=== PATIENT | female | born 1955 | race Caucasian/White ===

== ENCOUNTER 2016-08-18 06:05 | Day surgery (SDC) | payer OTHER ==
[2016-08-18] MEDS ORDERED: Lactated Ringers 1,000 ML IV ONE (07:27)
[2016-08-18] MEDS ORDERED: Lactated Ringers 1,000 ML IV SCH (07:30)
[2016-08-18] MEDS ORDERED: DIPRIVAN 200 MG/20 ML IV ONE (08:00)
[2016-08-18] MEDS ORDERED: Mylicon DROPS PO ONE (08:00)
[2016-08-18] MEDS ORDERED: Ketamine HCl 50 MG/ML IJ ONE (08:45)
[2016-08-18 09:07] VITALS: O2SAT 99
[2016-08-18 09:56] VITALS: BP 139/79; PULSE 80
--- NOTE | 2016-08-18 10:45 | OP ---
SURGERY DATE/TIME: 08/18/2016808 PREOPERATIVE DIAGNOSIS: Epigastric pain. POSTOPERATIVE DIAGNOSIS: 1) Hiatal hernia. 2) Esophagitis. 3) Mild gastritis. PROCEDURE: Esophagogastroduodenoscopy with biopsy. SURGEON: Dr. Curiel. ANESTHESIA: Medications were given by the anesthesia department. BRIEF HISTORY: The patient is a 61 year old white female patient who presents now for complaints of epigastric pain. The patient reports that she has been taking famotidine and omeprazole without resolution of her epigastric problems. She reports that she is having significant reflux as well. The patient was felt to need to have endoscopic evaluation and she was appraised of the risks of the procedure including the risk of perforation, phlebitis, untoward reaction to medication, bleeding, missed lesions. The patient verbalized her understanding and desired to have the procedure performed. DESCRIPTION OF PROCEDURE: The patient was given the medications by the anesthesia department. She had continuous pulse oximetry, ECG monitoring, intermittent blood pressure monitoring and tidal CO2 monitoring during the examination. She was placed in the left lateral decubitus position. A bite block was placed. The flexible Olympus gastroscope was used to intubate the oropharynx. The scope was easily introduced into the esophagus which was normal to the lower one-third where we noted hiatal hernia pouch. There was also noted to be significant erythema at the junction of the pouch and the esophagus. The stomach was entered where normal gastric rugal folds were seen and these distended nicely with insufflation of air. The scope was passed along the greater curvature of the stomach to the antrum. The pylorus is encountered and intubated. Duodenum inspected and found to be normal. The scope is withdrawn towards the stomach. Again, a retroflex view was obtained of the lesser curvature, fundus and cardia regions of the stomach and again was noted the hiatal hernia. The scope was then redirected towards the gastric antrum and biopsies were obtained to rule out the presence of Helicobacter pylori-type organisms. We also noted a few scattered gastric polyps and these were biopsied as well as to rule out any neoplastic change. The scope was removed from the patient who tolerated the procedure well and was sent back to the hospital [facility] in good condition.
== END 2016-08-18 09:25 | disposition home or self-care (01) ==
LOC: SDC 06:05
PROVIDERS: ATTEND Family Medicine
PROC: 0DB68ZX Excision of Stomach, Via Natural or Artificial Opening Endoscopic, Diagnostic (ICD-10-PCS; principal; 2016-08-18)
DX: K44.9 Diaphragmatic hernia without obstruction or gangrene (principal); K20.9 Esophagitis, unspecified; K29.70 Gastritis, unspecified, without bleeding; K31.7 Polyp of stomach and duodenum; K21.9 Gastro-esophageal reflux disease without esophagitis
CPT/HCPCS: 00740; 36415; 88305; J2704

== ENCOUNTER 2017-03-19 06:07 | Day surgery (SDC) | payer OTHER ==
[~2017-03-19 06:07] MED LIST: Lactated Ringers 1,000 ML IV SCH
[2017-03-19] MEDS ORDERED: DIPRIVAN 200 MG/20 ML IV ONE (06:08)
[2017-03-19] MEDS ORDERED: Ketamine HCl 50 MG/ML IV ONE (06:08)
[2017-03-19 06:34] VITALS: PULSE 76
[2017-03-19 08:12] VITALS: O2SAT 100
[2017-03-19 08:43] VITALS: BP 128/61
--- NOTE | 2017-03-19 09:27 | OP ---
SURGERY DATE/TIME: 03/19/2017 0700 PREOPERATIVE DIAGNOSIS: Anemia. POSTOPERATIVE DIAGNOSIS: Normal colon. PROCEDURE: Colonoscopy. SURGEON: Dr. Curiel. ANESTHESIA: MAC. Medications given by anesthesia department. HISTORY: The patient is a 61 year-old white female presenting now for work up for anemia. The patient was felt the need to have endoscopic evaluation of the colon. She was appraised of the risks of the procedure including the risk of perforation, phlebitis, untoward reaction to medication, bleeding and missed lesions. The patient verbalized her understanding and desired to have the procedure performed. DESCRIPTION OF PROCEDURE: The patient was placed in left lateral decubitus position. A digital rectal examination was performed and revealed normal anal sphincter tone and no masses. The flexible Olympus pediatric colonoscope was used to intubate the rectum. A view of the colon was developed sequentially to the cecum. Upon insertion and withdrawal, including a retroflex view in the rectum, no mucosal lesions were encountered. There was however noted to be very large amount of liquid black stool. We obtained sample to send off for evaluation of blood. The scope was removed from the patient who tolerated the procedure well and was sent back to OP recovery in good condition. The prep was noted to be fair.
== END 2017-03-19 08:46 | disposition home or self-care (01) ==
LOC: SDC 06:07
PROVIDERS: ATTEND Family Medicine
PROC: 0DJD8ZZ Inspection of Lower Intestinal Tract, Via Natural or Artificial Opening Endoscopic (ICD-10-PCS; principal; 2017-03-19)
DX: D64.9 Anemia, unspecified (principal); K21.9 Gastro-esophageal reflux disease without esophagitis; I10 Essential (primary) hypertension
CPT/HCPCS: 00810; 82272; J2704

== ENCOUNTER 2017-04-02 05:51 | Day surgery (SDC) | payer OTHER ==
[2017-04-02] MEDS ORDERED: Versed 2 MG/2 ML Injection IV ONE (05:52)
[2017-04-02] MEDS ORDERED: DIPRIVAN 200 MG/20 ML IV ONE (05:52)
[2017-04-02] MEDS ORDERED: Lactated Ringers 1,000 ML IV SCH (07:00)
--- NOTE | 2017-04-02 08:24 | OP ---
SURGERY DATE/TIME: 04/02/2017 0755 PREOPERATIVE DIAGNOSIS: Gastroesophageal reflux disease. POSTOPERATIVE DIAGNOSES: 1) Grade III reflux esophagitis. 2) Hiatal hernia. 3) Gastric polyps. PROCEDURE: Esophagogastroduodenoscopy with biopsy. SURGEON: Dr. Curiel. ANESTHESIA: Medications were given by the anesthesia department. BRIEF HISTORY: The patient is a 61 year old white female presenting with complaints of severe epigastric discomfort radiating up from her stomach into her chest. She was felt the need to have endoscopic evaluation. She was appraised of the risks of the procedure including the risk of perforation, phlebitis, untoward reaction to medication, bleeding and missed lesions. The patient verbalized her understanding and desired to have the procedure performed. DESCRIPTION OF PROCEDURE: The patient was given the medications by the anesthesia department. She had continuous pulse oximetry, ECG monitoring, intermittent blood pressure monitoring and tidal CO2 monitoring during the examination. She was placed in the left lateral decubitus position. A bite block was placed. The flexible Olympus gastroscope was used to intubate the oropharynx. A view of the larynx was obtained and was normal. The scope was easily introduced in the esophagus which appeared to be normal to the lower one-third where there appeared to be streaks of erythema and erosions but no active bleeding in the lower portion of the esophagus. The stomach was then entered. Normal gastric rugal folds were seen. These distended nicely with insufflation of air. There was noted to be scattered gastric polyps that appeared to be benign in nature. The scope was passed along the greater curvature of the stomach to the antrum. The pylorus was encountered and intubated. The duodenum inspected and found to be normal. The scope is withdrawn towards the stomach. A retroflex view was obtained of the lesser curvature, fundus and cardia regions of the stomach. There was noted here to be hiatal hernia. Biopsies were obtained from the gastric polyps to rule out any neoplastic change. The scope was then withdrawn from the patient and the patient was sent back to the recovery room in good condition.
[2017-04-02 09:15] VITALS: BP 127/73; PULSE 57; O2SAT 97
== END 2017-04-02 09:18 | disposition home or self-care (01) ==
LOC: SDC 05:51
PROVIDERS: ATTEND Family Medicine
PROC: 0DB68ZX Excision of Stomach, Via Natural or Artificial Opening Endoscopic, Diagnostic (ICD-10-PCS; principal; 2017-04-02)
DX: K21.0 Gastro-esophageal reflux disease with esophagitis (principal); K44.9 Diaphragmatic hernia without obstruction or gangrene; K31.7 Polyp of stomach and duodenum
CPT/HCPCS: 00740; 36415; 88305; J2250; J2704

== ENCOUNTER 2017-08-26 13:41 | Emergency (ER) | payer OTHER ==
[2017-08-26] MEDS ORDERED: Norflex 60 MG/2 ML IM ONE (14:03)
[2017-08-26] MEDS ORDERED: TORAdol 30 mg Injection IM ONE (14:03)
--- NOTE | 2017-08-26 14:08 | ERPHSYRPT ---
- History of Present Illness Time Seen by Provider: 08/26/17 13:55 Source: patient, family (mother) Patient Subjective Stated Complaint: pt reports she has been packing and moving her house-reports low back pain radiating to right side-denies injury-denies fall Triage Nursing Assessment: pt pink warm and [id number] signs of injury-no bruising or abrasions noted-tenderness noted Physician History: CC: back pain Hx: 62 y/o patient of Dr Curiel with hx of sciatica. She has been packing boxes to move since Wednesday. Today awoke with severe back pain radiating to the right leg similar to prior sciatica. No fever, chills, abd pain. She takes coumadin. No specific injury. No N/T/W. Back Pain Location: lumbar spine Severity of Pain-Max: severe Severity of Pain-Current: severe Allergies/Adverse Reactions: hydrocodone bitartrate [From [place]] Allergy (Mild, Verified 08/26/17 13:52) Rash Sulfa (Sulfonamide Antibiotics) [Sulfa(Sulfonamide Antibiotics)] Allergy (Mild, Verified 08/26/17 13:52) patient unsure as to reaction escitalopram oxalate [From Lexapro] Allergy (Unknown, Verified 08/26/17 13:52) Home Medications: Omeprazole 20 MG [Prilosec 20 mg] 40 mg PO DAILY 11/03/11 [History] Phenytoin Sod Extended 100 mg* [Dilantin 100 MG] 50 mg PO DAILY 11/03/11 [ History] Topiramate [Topamax] 200 mg PO BID 11/03/11 [History] Venlafaxine HCl [Effexor] 75 mg PO DAILY 11/03/11 [History] Amlodipine Besylate 5 mg [Norvasc 5 mg] 10 mg PO DAILY 03/12/14 [History] Metoprolol Tartrate 25 mg [Lopressor 25MG Tab] 12.5 mg PO BID 03/12/14 [ History] Warfarin Sodium 1 mg [Coumadin 1 MG] 3 mg PO DAILY 03/12/14 [History] Alprazolam [Xanax 0.5 mg] 0.5 mg PO TIDPRN 08/17/16 [History] Famotidine [Pepcid] 40 mg PO DAILY 08/17/16 [History] Simvastatin 40 mg [Zocor 40 mg] 40 mg PO DAILY 08/17/16 [History] Ferrous Sulfate [Iron] 325 mg PO BID 03/16/17 [History] Hx Tetanus, Diphtheria Vaccination/Date Given: Yes Hx Influenza Vaccination/Date Given: No Hx Pneumococcal Vaccination/Date Given: No Immunizations Up to Date: Yes - Review of Systems Constitutional: No Fever, No Chills Eyes: No Symptoms Ears, Nose, & Throat: No Symptoms Respiratory: No Cough, No Dyspnea Cardiac: No Chest Pain Abdominal/Gastrointestinal: No Abdominal Pain, No Nausea, No Vomiting Genitourinary Symptoms: No Dysuria Musculoskeletal: Back Pain (radiating to the right leg) Skin: No Rash Neurological: No Focal Weakness, No Headache, No Parasthesia All Other Systems: Reviewed and Negative - Past Medical History Pertinent Past Medical History: Yes Neurological History: Epilepsy, Migraines, Seizures ENT History: No Pertinent History Cardiac History: Hypertension, Other Respiratory History: Asthma Endocrine Medical History: No Pertinent History Musculoskeletal History: No Pertinent History GI Medical History: GERD, Gallbladder Disease, Hemorrhoids History: No Pertinent History Psycho-Social History: Depression Female Reproductive Disorders: No Pertinent History Other Medical History: 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 post shoulder surgery,mitral valve prolapse - Past Surgical History Past Surgical History: Yes Neuro Surgical History: No Pertinent History Cardiac: No Pertinent History Respiratory: No Pertinent History Gastrointestinal: Cholecystectomy Genitourinary: No Pertinent History Musculoskeletal: Orthopedic Surgery Female Surgical History: Hysterectomy Other Surgical History: lt knee and lt shoulder - Social History Smoking Status: Never smoker Exposure to second hand smoke: Yes Drug Use: none Patient Lives Alone: No - Female History Hx Last Menstrual Period: hysterectomy Hx Now: No - Nursing Vital Signs Nursing Vital Signs: Initial Vital Signs Temperature 97.6 F 08/26/17 13:54 Pulse Rate 67 08/26/17 13:54 Respiratory Rate 16 08/26/17 13:54 Blood Pressure 146/80 08/26/17 13:54 O2 Sat by Pulse Oximetry 96 08/26/17 13:54 Pain Scale Pain Intensity 4 - Physical Exam General Appearance: alert Eye Exam: PERRL/EOMI Ears, Nose, Throat Exam: normal ENT inspection, moist mucous membranes Neck Exam: normal inspection, non-tender, supple Respiratory Exam: normal breath sounds Cardiovascular Exam: regular rate/rhythm Gastrointestinal Exam: soft, No tenderness, No distention Back Exam: normal inspection, point tenderness (low spine down right leg buttock ), No rash Neurologic Exam: alert, oriented x 3, cooperative, sensation nml, No motor deficits Skin Exam: warm, dry, No rash SpO2 Interpretation: normal SpO2: 96 Oxygen Delivery: Room Air - Course Nursing assessment & vital signs reviewed: Yes - Radiology Ultrasound Exam lumbar Ultrasound: tele radiology report (nonacute lumbar spine with chronic features, fecal stasis.) Ordered Tests: Active Orders 24 hr Category Date Time Status LUMBAR COMPLETE (MIN 4 VIEWS) Stat Exams 08/26/17 14:49 Completed CBC Stat Lab 08/26/17 14:15 Completed PROTIME WITH INR Stat Lab 08/26/17 14:15 Completed Medication Summary Discontinued Medications Generic Name Dose Route Start Last Admin Trade Name Freq PRN Reason Stop Dose Admin Ketorolac Tromethamine 30 mg 08/26/17 14:03 08/26/17 14:28 Toradol 30 Mg Injection IM 08/26/17 14:04 30 mg STAT ONE Administration Ketorolac Tromethamine Confirm 08/26/17 14:27 Toradol 30 Mg Injection Administered 08/26/17 14:28 Dose 30 mg .ROUTE .STK-MED ONE Orphenadrine Citrate 60 mg 08/26/17 14:03 08/26/17 14:28 Norflex 60 Mg/2 Ml IM 08/26/17 14:04 60 mg STAT ONE Administration Orphenadrine Citrate Confirm 08/26/17 14:27 Norflex 60 Mg/2 Ml Administered 08/26/17 14:28 Dose 60 mg .ROUTE .STK-MED ONE Lab/Rad Data: Laboratory Result Diagrams 08/26/17 14:15 Laboratory Results 08/26/17 08/26/17 Range/Units 14:15 14:15 WBC 7.8 (4.0-10.5) K/mm3 RBC 4.00 L (4.1-5.4) M/mm3 Hgb 12.8 (12.0-16.0) gm/dl Hct 38.9 (35-47) % MCV 97.3 (78-100) fl MCH 32.0 (26-32) pg MCHC 32.9 (32-36) g/dl RDW 13.8 (11.5-14.0) % Plt Count 285 (150-450) K/mm3 MPV 9.8 H (6-9.5) fl INR 5.33 H* (0.8-3.0) - Progress Progress Note: 08/26/17 15:24 She has not had INR checked since May. No bleeding evident. She is on coumadin 4mg 3X a week, and 3mg 4X a week. She already took dose today. She will hold coumadin Wednesday and Wednesday, take 3mg Wednesday and Wednesday, with INR and office call Wednesday. Pain some better. Will release with codiene and norflex. Counseled pt/family regarding: lab results, diagnosis, need for follow-up, rad results - Departure Time of Disposition: 15:25 Departure Disposition: Home Clinical Impression: Sciatica, right side, Warfarin-induced coagulopathy Condition: Stable Critical Care Time: No Referrals: SULMA CURIEL [Primary Care Provider] - Instructions: Sciatica (DC), Anti-Clotting Medicines: Warfarin (Coumadin) Additional Instructions: See Dr Curiel Wednesday at 1:15PM. Lab drawn INR Wednesday before appointment. Hold coumadin Wednesday and Wednesday. Take 3mg Coumadin Wednesday and Wednesday. Rest, warm compresses to back, Rx tylenol #3, Rx norflex. No driving. Return for problems or concerns. Prescriptions: Codeine Phosphate/APAP #3 [Tylenol #3 Tablet] 1 tab PO Q4-6HPRN PRN #15 tablet PRN Reason: Pain Orphenadrine Citrate 100 mg [Norflex 100 MG Tablet] 1 tab PO BID #10 tab
[2017-08-26] MEDS ORDERED: Norflex 60 MG/2 ML ONE (14:27)
[2017-08-26] MEDS ORDERED: TORAdol 30 mg Injection ONE (14:27)
[2017-08-26 14:43] LABS: Hematocrit 38.9 % (35-47); Hemoglobin 12.8 gm/dl (12.0-16.0); Mean Cell Volume 97.3 fl (78-100); Mean Corpuscular Hgb Concent. 32.9 g/dl (32-36); Mean Platelet Volume 9.8 fl (6-9.5); Platelet Count 285 K/mm3 (150-450); Red Cell Distribution Width 13.8 % (11.5-14.0); White Blood Count 7.8 K/mm3 (4.0-10.5)
--- NOTE | 2017-08-26 15:03 | XRAY ---
Indication: Back pain following lifting. Comparison: None 5 views of the lumbar spine demonstrates 5 lumbar vertebral segments in normal alignment with L2-L4 marginal endplate spurring, L3-L4 disc space narrowing, and minimal bilateral L5-S1 degenerative facet arthropathy. No acute fracture, subluxation, or pars interarticularis defect. Incidental scattered colonic fecal debris and cholecystotomy clips. Impression: Nonacute lumbar spine with chronic features. Incidental fecal stasis.
[2017-08-26 15:08] LABS: INR 5.33 (0.8-3.0)
[2017-08-26 15:24] VITALS: BP 116/62; PULSE 70
[2017-08-26 15:29] VITALS: O2SAT 96
== END 2017-08-26 15:55 | disposition home or self-care (01) ==
LOC: ED 13:41
DX: M54.31 Sciatica, right side (principal); D68.9 Coagulation defect, unspecified; Z79.01 Long term (current) use of anticoagulants; Z79.899 Other long term (current) drug therapy
CPT/HCPCS: 36415; 72110; 85027; 85610; 96372; 99284; J1885; J2360

== ENCOUNTER 2018-03-10 11:18 | Emergency (ER) | payer OTHER ==
[2018-03-10] MEDS ORDERED: BENADRYL 50 MG/ML IV ONE (11:32)
[2018-03-10] MEDS ORDERED: Zofran 4 MG/2 ML VIAL IV ONE (11:32)
[2018-03-10] MEDS ORDERED: DUONEB 0.5-3 MG/3 ml Neb IH ONE ×2 (11:34→12:09)
[2018-03-10] MEDS ORDERED: SUBLIMAZE 100 MCG/2 ML ONE (11:41)
[2018-03-10] MEDS ORDERED: Zofran 4 MG/2 ML VIAL ONE (11:41)
[2018-03-10] MEDS ORDERED: Sodium Chloride 0.9% 1000 ML 1,000 ML ONE (11:41)
[2018-03-10] MEDS ORDERED: BENADRYL 50 MG/ML ONE (11:41)
--- NOTE | 2018-03-10 11:41 | ERPHSYRPT ---
- History of Present Illness Time Seen by Provider: 03/10/18 11:30 Historian: patient Exam Limitations: no limitations Patient Subjective Stated Complaint: pt here for pain to left side of chest and jaw, pain started last night and is better, pain worse with a deep breath, productive cough, Triage Nursing Assessment: pt walked in , resp easy, skin w/d/p. anxious, chest clear. no edema Physician History: Pt started c/o mid-sternal chest pain radiating to her left jaw and left arm at midnight last night, lasting 3 hours. It has resolved, but she is c/o left sided headaches, nausea, denies vomiting, visual changes, slurred speech, focal weakness, SOB abdominal pain, other complaints, except productive cough for few days without fever or chills. She has had similar headaches ( migraines) multiple times. She states, she takes Coumadin, because " I had clot in my heart " but denies [place], cardiac cath. or stents. Timing/Duration: hour(s) (12), constant Activities at Onset: none Quality: sharpness, stabbing Location: substernal Chest Pain Radiation: jaw, arm (left) Severity of Pain-Max: severe Severity of Pain-Current: none Modifying Factors: Improves With: nothing Associated Symptoms: nausea, cough, headache Prior Chest Pain/Cardiac Workup: no prior chest pain Nitro Today/Relief: no nitro taken today Aspirin Treatment Today: no aspirin today Allergies/Adverse Reactions: hydrocodone bitartrate [From [place]] Allergy (Mild, Verified 03/10/18 11:26) Rash Sulfa (Sulfonamide Antibiotics) [Sulfa(Sulfonamide Antibiotics)] Allergy (Mild, Verified 03/10/18 11:26) patient unsure as to reaction escitalopram oxalate [From Lexapro] Allergy (Unknown, Verified 03/10/18 11:26) Home Medications: Omeprazole 20 MG [Prilosec 20 mg] 40 mg PO DAILY 11/03/11 [History] Phenytoin Sod Extended 100 mg* [Dilantin 100 MG] 50 mg PO DAILY 11/03/11 [ History] Topiramate [Topamax] 200 mg PO BID 11/03/11 [History] Venlafaxine HCl [Effexor] 75 mg PO DAILY 11/03/11 [History] Amlodipine Besylate 5 mg [Norvasc 5 mg] 10 mg PO DAILY 03/12/14 [History] Metoprolol Tartrate 25 mg [Lopressor 25MG Tab] 12.5 mg PO BID 03/12/14 [ History] Warfarin Sodium 1 mg [Coumadin 1 MG] 3 mg PO DAILY 03/12/14 [History] ALPRAZolam [Xanax 0.5 mg] 0.5 mg PO TIDPRN 08/17/16 [History] Famotidine [Pepcid] 40 mg PO DAILY 08/17/16 [History] Simvastatin 40 mg [Zocor 40 mg] 40 mg PO DAILY 08/17/16 [History] Ferrous Sulfate [Iron] 325 mg PO BID 03/16/17 [History] Hx Tetanus, Diphtheria Vaccination/Date Given: No Hx Influenza Vaccination/Date Given: No Hx Pneumococcal Vaccination/Date Given: No Immunizations Up to Date: Yes - Review of Systems Constitutional: No Symptoms Respiratory: Cough Cardiac: Chest Pain Abdominal/Gastrointestinal: Nausea Neurological: Headache All Other Systems: Reviewed and Negative - Past Medical History Pertinent Past Medical History: Yes Neurological History: Epilepsy, Migraines, Seizures ENT History: No Pertinent History Cardiac History: Hypertension, Other Respiratory History: Asthma Endocrine Medical History: No Pertinent History Musculoskeletal History: No Pertinent History GI Medical History: GERD, Gallbladder Disease, Hemorrhoids History: No Pertinent History Psycho-Social History: Depression Female Reproductive Disorders: No Pertinent History Other Medical History: 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 post shoulder surgery,mitral valve prolapse - Past Surgical History Past Surgical History: Yes Neuro Surgical History: No Pertinent History Cardiac: No Pertinent History Respiratory: No Pertinent History Gastrointestinal: Cholecystectomy Genitourinary: No Pertinent History Musculoskeletal: Orthopedic Surgery Female Surgical History: Hysterectomy Other Surgical History: lt knee and lt shoulder - Social History Smoking Status: Never smoker Exposure to second hand smoke: No Drug Use: none Patient Lives Alone: No - Female History Hx Last Menstrual Period: post - Nursing Vital Signs Nursing Vital Signs: Initial Vital Signs Temperature 97.8 F 03/10/18 11:20 Pulse Rate 79 03/10/18 11:20 Respiratory Rate 16 03/10/18 11:20 Blood Pressure 157/98 03/10/18 11:20 O2 Sat by Pulse Oximetry 97 03/10/18 11:20 Pain Scale Pain Intensity 2 - Physical Exam General Appearance: no apparent distress, alert Eye Exam: PERRL/EOMI, eyes nml inspection Ears, Nose, Throat Exam: normal ENT inspection, pharynx normal, moist mucous membranes Neck Exam: normal inspection, non-tender, supple, No carotid bruit, No JVD Respiratory Exam: normal breath sounds, lungs clear, airway intact, No chest tenderness Cardiovascular Exam: regular rate/rhythm, normal heart sounds, normal peripheral pulses, No murmur Gastrointestinal/Abdomen Exam: soft, normal bowel sounds, No tenderness, No distention, No mass, No guarding Back Exam: normal inspection, No CVA tenderness Extremity Exam: normal inspection, No calf tenderness, No shaila's sign, No pedal edema Neurologic Exam: alert, oriented x 3, lock up worker II-XII nml as tested, normal mood/ affect, No motor deficits Skin Exam: normal color, warm, dry, No rash Lymphatic Exam: No adenopathy SpO2 Interpretation: normal SpO2: 97 Oxygen Delivery: Room Air - Course Nursing assessment & vital signs reviewed: Yes EKG Interpreted by Me: RATE (75/min), NORMAL AXIS, NORMAL INTERVALS, NORMAL ST-T , Other (unchanged from 12/08/2012, repeat Ek:14: NSR, unchanged.) - Radiology Exams Chest X-ray Interpretation: Reviewed by me, Other (Lingular infiltrate vs atelectasis) - CT Exams Head CT Interpretation: Negative, Tele-radiologist Report Ordered Tests: Active Orders 24 hr Category Date Time Status Clinical Systems Analyst STAT Care 03/10/18 11:30 Active EKG-ER Only STAT Care 03/10/18 11:29 Active EKG-ER Only STAT Care 03/10/18 13:49 Active IV Insertion STAT Care 03/10/18 11:29 Active Oxygen-ED Only NASAL CANNULA 2 lpm Care 03/10/18 11:29 Active CHEST 2 VIEWS (PA AND LAT) Stat Exams 03/10/18 11:30 Completed HEAD WITHOUT CONTRAST [CT] Stat Exams 03/10/18 11:31 Completed BLOOD CULTURE Stat Lab 03/10/18 11:30 Received CBC W DIFF Stat Lab 03/10/18 11:40 Completed CK-Creatinine Phosphokinase Stat Lab 03/10/18 11:40 Completed CMP Stat Lab 03/10/18 11:40 Completed LIPASE Stat Lab 03/10/18 11:40 Completed Lactic Acid Stat Lab 03/10/18 14:30 Completed MAGNESIUM Stat Lab 03/10/18 11:40 Completed NT PRO BNP Stat Lab 03/10/18 11:40 Completed PROTIME WITH INR Stat Lab 03/10/18 11:40 Completed SED RATE [Erythrocyte Sedimentation Rate] Stat Lab 03/10/18 11:40 Completed TROPONIN Q3H Lab 03/10/18 11:40 Completed TROPONIN Q3H Lab 03/10/18 14:28 Completed TROPONIN Q3H Lab 03/10/18 17:30 Ordered TROPONIN Q3H Lab 03/10/18 20:30 Ordered TROPONIN Q3H Lab 03/10/18 23:30 Ordered Respiratory Nebulizer STAT RT 03/10/18 11:34 Completed Respiratory Therapy Assessment ONCE RT 03/10/18 12:10 Completed Medication Summary Generic Name Dose Route Start Last Admin Trade Name Freq PRN Reason Stop Dose Admin Sodium Chloride 1,000 mls @ 100 mls/hr 03/10/18 11:45 03/10/18 11:55 Sodium Chloride 0.9% 1000 Ml IV 04/09/18 11:44 100 mls/hr .Q10H ARLET Administration Azithromycin 500 mg in 250 mls @ 250 mls/hr 03/11/18 13:55 03/10/18 14:08 Zithromax 500 Mg/ 250 Ml Nacl Premix IV 03/11/18 14:54 125 ml/hr NOW ONE 125 mls/hr Administration Ceftriaxone Sodium/Dextrose 1 g in 50 mls @ 100 mls/hr 03/11/18 13:55 15:17 Rocephin 1 Gm-D5w 50 Ml Bag IV 03/11/18 14:24 100 ml/hr NOW ONE 100 mls/hr Administration Discontinued Medications Generic Name Dose Route Start Last Admin Trade Name Freq PRN Reason Stop Dose Admin Albuterol/Ipratropium 3 ml 03/10/18 11:34 03/10/18 12:10 Duoneb 0.5-3 Mg/3 Ml Neb IH 03/10/18 11:35 3 ml STAT ONE Administration Albuterol/Ipratropium Confirm 03/10/18 12:09 Duoneb 0.5-3 Mg/3 Ml Neb Administered 03/10/18 12:10 Dose 3 ml IH .STK-MED ONE Diphenhydramine HCl 25 mg 03/10/18 11:32 03/10/18 11:55 Benadryl 50 Mg/Ml IV 03/10/18 11:33 25 mg STAT ONE Administration Diphenhydramine HCl Confirm 03/10/18 11:41 Benadryl 50 Mg/Ml Administered 03/10/18 11:42 Dose 50 mg .ROUTE .STK-MED ONE Fentanyl Citrate 50 mcg 03/10/18 11:45 03/10/18 11:47 Fentanyl 500 Mcg/10 Ml Vial IV 03/10/18 11:46 Not Given NOW ONE Fentanyl Citrate Confirm 03/10/18 11:41 Sublimaze 100 Mcg/2 Ml Administered 03/10/18 11:42 Dose 100 mcg .ROUTE .STK-MED ONE Fentanyl Citrate 50 mcg 03/10/18 11:44 03/10/18 11:54 Sublimaze 100 Mcg/2 Ml IV 03/10/18 11:45 50 mcg STAT ONE Administration Levofloxacin/Dextrose 750 mg in 150 mls @ 100 mls/hr 03/10/18 13:54 03/10/18 14:04 Levofloxacin 750mg/150ml D5w IV 03/10/18 15:23 Not Given STAT STA Azithromycin Confirm 03/10/18 14:02 Zithromax 500 Mg/ 250 Ml Nacl Premix Administered 03/10/18 14:03 Dose 500 mg in 250 mls @ ud IV .STK-MED ONE Ceftriaxone Sodium/Dextrose Confirm 03/10/18 14:02 Rocephin 1 Gm-D5w 50 Ml Bag Administered 03/10/18 14:03 Dose 1 g in 50 mls @ ud IV .STK-MED ONE Ondansetron HCl 4 mg 03/10/18 11:32 03/10/18 11:55 Zofran 4 Mg/2 Ml Vial IV 03/10/18 11:33 4 mg STAT ONE Administration Ondansetron HCl Confirm 03/10/18 11:41 Zofran 4 Mg/2 Ml Vial Administered 03/10/18 11:42 Dose 4 mg .ROUTE .STK-MED ONE Lab/Rad Data: Laboratory Result Diagrams 03/10/18 11:40 03/10/18 11:40 Laboratory Results 0903/10/18 03/10/18 Range/Units 14:30 14:28 11:40 WBC (4.0-10.5) K/mm3 RBC (4.1-5.4) M/mm3 Hgb (12.0-16.0) gm/dl Hct (35-47) % MCV (78-100) fl MCH (26-32) pg MCHC (32-36) g/dl RDW (11.5-14.0) % Plt Count (150-450) K/mm3 MPV (6-9.5) fl Gran % (36.0-66.0) % Eos # (Auto) (0-0.5) Absolute Lymphs (auto) (1.0-4.6) Absolute Monos (auto) (0.0-1.3) Lymphocytes % (24.0-44.0) % Monocytes % (0.0-12.0) % Eosinophils % (0.00-5.0) % Basophils % (0.0-0.4) % Absolute Granulocytes (1.4-6.9) Basophils # (0-0.4) ESR 14 (0-20) mm/hr PT (9.95-12.35) SECONDS INR (0.8-3.0) Sodium (137-145) mmol/L Potassium (3.5-5.1) mmol/L Chloride (98-107) mmol/L Carbon Dioxide (22-30) mmol/L Anion Gap (5-15) MEQ/L BUN (7-17) mg/dL Creatinine (0.52-1.04) mg/dL Estimated GFR ML/MIN Glucose (74-106) mg/dL Lactic Acid 1.6 (0.4-2.0) Calcium (8.4-10.2) mg/dL Magnesium (1.6-2.3) mg/dL Total Bilirubin (0.2-1.3) mg/dL AST (14-36) U/L ALT (0-35) U/L Alkaline Phosphatase (38-126) U/L Creatine Kinase (30-135) U/L Troponin I < 0.012 (0.000-0.034) ng/mL NT-Pro-B Natriuret Pep (0-900) pg/mL Serum Total Protein (6.3-8.2) g/dL Albumin (3.5-5.0) g/dL Lipase (23-300) U/L 03/10/18 03/10/18 03/10/18 Range/Units 11:40 11:40 11:40 WBC (4.0-10.5) K/mm3 RBC (4.1-5.4) M/mm3 Hgb (12.0-16.0) gm/dl Hct (35-47) % MCV (78-100) fl MCH (26-32) pg MCHC (32-36) g/dl RDW (11.5-14.0) % Plt Count (150-450) K/mm3 MPV (6-9.5) fl Gran % (36.0-66.0) % Eos # (Auto) (0-0.5) Absolute Lymphs (auto) (1.0-4.6) Absolute Monos (auto) (0.0-1.3) Lymphocytes % (24.0-44.0) % Monocytes % (0.0-12.0) % Eosinophils % (0.00-5.0) % Basophils % (0.0-0.4) % Absolute Granulocytes (1.4-6.9) Basophils # (0-0.4) ESR (0-20) mm/hr PT 49.8 H (9.95-12.35) SECONDS INR 4.22 H (0.8-3.0) Sodium 141 (137-145) mmol/L Potassium 3.7 (3.5-5.1) mmol/L Chloride 108 H (98-107) mmol/L Carbon Dioxide 21 L (22-30) mmol/L Anion Gap 15.8 H (5-15) MEQ/L BUN 12 (7-17) mg/dL Creatinine 0.78 (0.52-1.04) mg/dL Estimated GFR > 60.0 ML/MIN Glucose 137 H (74-106) mg/dL Lactic Acid (0.4-2.0) Calcium 9.2 (8.4-10.2) mg/dL Magnesium 2.0 (1.6-2.3) mg/dL Total Bilirubin 0.30 (0.2-1.3) mg/dL AST 43 H (14-36) U/L ALT 41 H (0-35) U/L Alkaline Phosphatase 139 H (38-126) U/L Creatine Kinase 50 (30-135) U/L Troponin I < 0.012 (0.000-0.034) ng/mL NT-Pro-B Natriuret Pep 86.5 (0-900) pg/mL Serum Total Protein 7.8 (6.3-8.2) g/dL Albumin 4.3 (3.5-5.0) g/dL Lipase 159 (23-300) U/L 03/10/18 Range/Units 11:40 WBC 13.7 H (4.0-10.5) K/mm3 RBC 4.49 (4.1-5.4) M/mm3 Hgb 14.4 (12.0-16.0) gm/dl Hct 43.2 (35-47) % MCV 96.2 (78-100) fl MCH 32.1 H (26-32) pg MCHC 33.3 (32-36) g/dl RDW 13.6 (11.5-14.0) % Plt Count 300 (150-450) K/mm3 MPV 9.9 H (6-9.5) fl Gran % 76.9 H (36.0-66.0) % Eos # (Auto) 0.15 (0-0.5) Absolute Lymphs (auto) 2.03 (1.0-4.6) Absolute Monos (auto) 0.97 (0.0-1.3) Lymphocytes % 14.8 L (24.0-44.0) % Monocytes % 7.1 (0.0-12.0) % Eosinophils % 1.1 (0.00-5.0) % Basophils % 0.1 (0.0-0.4) % Absolute Granulocytes 10.57 H (1.4-6.9) Basophils # 0.02 (0-0.4) ESR (0-20) mm/hr PT (9.95-12.35) SECONDS INR (0.8-3.0) Sodium (137-145) mmol/L Potassium (3.5-5.1) mmol/L Chloride (98-107) mmol/L Carbon Dioxide (22-30) mmol/L Anion Gap (5-15) MEQ/L BUN (7-17) mg/dL Creatinine (0.52-1.04) mg/dL Estimated GFR ML/MIN Glucose (74-106) mg/dL Lactic Acid (0.4-2.0) Calcium (8.4-10.2) mg/dL Magnesium (1.6-2.3) mg/dL Total Bilirubin (0.2-1.3) mg/dL AST (14-36) U/L ALT (0-35) U/L Alkaline Phosphatase (38-126) U/L Creatine Kinase (30-135) U/L Troponin I (0.000-0.034) ng/mL NT-Pro-B Natriuret Pep (0-900) pg/mL Serum Total Protein (6.3-8.2) g/dL Albumin (3.5-5.0) g/dL Lipase (23-300) U/L - Progress Progress: improved Air Movement: good Progress Note: 03/10/18 15:55 Pt remained afebrile, improved after iv fluids, nebulizer treatments and iv fluids, no severe shortness of breath or distress, she was also given iv Rocephin and Zithromax after blood cultures. She was informed about our results , second troponin and Ekg normal, her headaches resolved, denies chest pain,she is being discharged in stable condition to follow up with her doctor in 2-3 days , return if severe pain, shortness of breath, vomiting or fever > 102 F. She was also advised not to take her Coumadin tonight and contact her PCP tomorrow for follow up blood work and to adjust the next dose! 03/10/18 16:04 - Departure Time of Disposition: 15:59 Departure Disposition: Home Clinical Impression: Pneumonia Qualifiers: Pneumonia type: due to unspecified organism Laterality: left Lung location: upper lobe of lung Qualified Code(s): J18.1 - Lobar pneumonia, unspecified organism Condition: Stable Critical Care Time: No Referrals: SULMA HEALY [Primary Care Provider] - Instructions: Atypical Chest Pain, Tension Headache, Pneumonia, Adult (DC), Angina (DC), Chest Pain (DC) Additional Instructions: Rest x 2-3 days, drink plenty of fluids, and follow up with your physician in 2- 3 days! Return if severe pain, shortness of breath, vomiting, fever> 102 F! Do not take Coumadin tonight and call your PCP for follow up blood work tomorrow to adjust next dose! Prescriptions: Amoxicillin/Potassium Clav [Augmentin 875-125 Tablet] 875 mg PO BID #20 tablet
[2018-03-10] MEDS ORDERED: SUBLIMAZE 100 MCG/2 ML IV ONE (11:44)
[2018-03-10] MEDS ORDERED: Sodium Chloride 0.9% 1000 ML 1,000 ML IV SCH (11:45)
[2018-03-10] MEDS ORDERED: FENTANYL 500 MCG/10 ML VIAL IV ONE (11:45)
[2018-03-10 11:54] LABS: BASOPHIL % 0.1 % (0.0-0.4); Basophil (Absolute #) 0.02 (0-0.4); Eosinophil % 1.1 % (0.00-5.0); Eosinophil (Absolute #) 0.15 (0-0.5); Granulocyte Absolute (ANC) 10.57 (1.4-6.9); Granulocytes % 76.9 % (36.0-66.0); Hematocrit 43.2 % (35-47); Hemoglobin 14.4 gm/dl (12.0-16.0); Lymphocyte (Absolute #) 2.03 (1.0-4.6); Lymphocytes % 14.8 % (24.0-44.0); Mean Cell Volume 96.2 fl (78-100); Mean Corpuscular Hemoglobin 32.1 pg (26-32); Mean Corpuscular Hgb Concent. 33.3 g/dl (32-36); Mean Platelet Volume 9.9 fl (6-9.5); Monocyte (Absolute #) 0.97 (0.0-1.3); Monocytes % 7.1 % (0.0-12.0); Platelet Count 300 K/mm3 (150-450); Red Blood Count 4.49 M/mm3 (4.1-5.4); Red Cell Distribution Width 13.6 % (11.5-14.0); White Blood Count 13.7 K/mm3 (4.0-10.5)
--- NOTE | 2018-03-10 12:07 | XRAY ---
Indication: Headache. History of migraines and epilepsy. Multiple contiguous axial images obtained through the head without contrast. Comparison: December 08, 2012. Again normal appearing brain parenchyma, ventricles, and bony calvarium. Visualized paranasal sinuses and mastoid air cells are clear. Impression: Stable normal CT head without contrast exam. CTDI 71.08
--- NOTE | 2018-03-10 12:07 | XRAY ---
Indication: Cough, short of breath, and chills. Comparison: October 29, 2016 PA/lateral chest demonstrates new subtle lingular infiltrate versus atelectasis. Remaining heart and lungs normal. Bony thorax intact.
[2018-03-10 12:24] LABS: INR 4.22 (0.8-3.0)
[2018-03-10 12:37] LABS: ALBUMIN 4.3 g/dL (3.5-5.0); ALKALINE PHOSPHATASE 139 U/L (38-126); ANION GAP 15.8 MEQ/L (5-15); BLOOD UREA NITROGEN 12 mg/dL (7-17); CHLORIDE 108 mmol/L (98-107); CK-Creatinine Phosphokinase 50 U/L (30-135); Calcium 9.2 mg/dL (8.4-10.2); Carbon Dioxide 21 mmol/L (22-30); Creatinine 1 0.78 mg/dL (0.52-1.04); Glucose 137 mg/dL (74-106); LIPASE 159 U/L (23-300); NT PRO BNP 86.5 pg/mL (0-900); Potassium 3.7 mmol/L (3.5-5.1); SGOT/AST 43 U/L (14-36); SGPT/ALT 41 U/L (0-35); SODIUM 141 mmol/L (137-145); Total Protein 7.8 g/dL (6.3-8.2)
[2018-03-10] MEDS ORDERED: LEVOFLOXACIN 750MG/150ML D5W 750 MG/150 ML BAG IV STA (13:54)
[2018-03-10] MEDS ORDERED: Zithromax 500 MG/ 250 ML NaCl Premix 500 MG/250 ML IVPB IV ONE (14:02)
[2018-03-10] MEDS ORDERED: ROCEPHIN 1 Gm-D5w 50 ml Bag** 1 G/50 ML IVPB IV ONE (14:02)
[2018-03-10 15:33] VITALS: O2SAT 97
[2018-03-10 16:04] VITALS: BP 115/64; PULSE 70
[2018-03-11] MEDS ORDERED: Zithromax 500 MG/ 250 ML NaCl Premix 500 MG/250 ML IVPB IV ONE (13:55)
[2018-03-11] MEDS ORDERED: ROCEPHIN 1 Gm-D5w 50 ml Bag** 1 G/50 ML IVPB IV ONE (13:55)
== END 2018-03-10 16:18 | disposition home or self-care (01) ==
LOC: ED 11:18
DX: J18.9 Pneumonia, unspecified organism (principal); R51 Headache; R11.0 Nausea; Z79.01 Long term (current) use of anticoagulants; Z79.899 Other long term (current) drug therapy
CPT/HCPCS: 36000; 36415; 70450; 71046; 80053; 82550; 83605; 83690; 83735; 83880; 84484; 85025; 85610; 85652; 87040; 93005; 93041; 94640; 96360; 96365; 96367; 96374; 96375; 99285; J0456; J0696; J1200; J2405; J3010; A9270-GY

== ENCOUNTER 2022-11-26 14:27 | Emergency (ER) | payer OTHER ==
--- NOTE | 2022-11-26 14:30 | ERPHSYRPT ---
- History of Present Illness Time Seen by Provider: 11/26/22 14:30 Historian: patient, EMS Exam Limitations: no limitations Physician History: This is a 67-year-old white female patient of Dr. 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 The pain has been present for approximately 1 month but the symptoms have worsened in the last 3 days. Patient states that her pain is in the epigastric area and there is some sharp and burning component with no vomiting episodes but intermittent dry heaving. She has had no fevers. She denies chest pain at this time. She denies shortness of breath. She has had no diarrhea. Patient has had a cholecystectomy and a hysterectomy in the past. Patient has multiple medical issues including hyperlipidemia, seizure disorder, gastroesophageal reflux disease, hypertension, chronic anemia, anxiety, depression, migraine headaches and asthma. Timing/Duration: worse (Worse the last 3 days), other (Symptoms for a month) Quality: aching, sharpness Abdominal Pain Onset Location: epigastric Pain Radiation: no radiation Severity of Pain-Max: moderate Severity of Pain-Current: moderate Modifying Factors: Improves With: other Associated Symptoms: other (Dry heaving dry heaving) Previous symptoms: no recent treatment Allergies/Adverse Reactions: hydrocodone bitartrate [From Lyman] Allergy (Mild, Verified 11/26/22 14:44) Rash Sulfa (Sulfonamide Antibiotics) [Sulfa(Sulfonamide Antibiotics)] Allergy (Mild, Verified 11/26/22 14:44) patient unsure as to reaction escitalopram oxalate [From Lexapro] Allergy (Unknown, Verified 11/26/22 14:44) Home Medications: Topiramate [Topamax] 100 mg PO BID 11/03/11 [History] Venlafaxine HCl [Effexor] 75 mg PO DAILY 11/03/11 [History] Amlodipine Besylate 5 mg [Norvasc 5 mg] 10 mg PO DAILY 03/12/14 [History] Metoprolol Tartrate 25 mg [Lopressor 25MG Tab] 25 mg PO BID 03/12/14 [History] Simvastatin 40 mg [Zocor 40 mg] 40 mg PO DAILY 08/17/16 [History] Diazepam 5 mg [Valium 5 MG] 2 mg PO DAILY 11/26/22 [History] Eslicarbazepine Acetate [Aptiom] 800 mg PO DAILY 11/26/22 [History] Fexofenadine HCl 180 mg PO DAILY 11/26/22 [History] Levocetirizine Dihydrochloride 5 mg PO DAILY 11/26/22 [History] Pantoprazole 40 mg [Protonix 40 mg IV] 40 mg PO DAILY 11/26/22 [History] Pnv,Calcium 72/Iron/Folic Acid [M-Sung Plus Tablet] 1 ea DAILY 11/26/22 [History] Hx Tetanus, Diphtheria Vaccination/Date Given: No Hx Influenza Vaccination/Date Given: No Hx Pneumococcal Vaccination/Date Given: No Travel Risk - International Travel Have you traveled outside of the country in past 3 weeks: No - Coronavirus Screening Are you exhibiting any of the following symptoms?: No Close contact with a COVID-19 positive Pt in past 14-21 Days: No - Review of Systems Constitutional: No Symptoms Eyes: No Symptoms Ears, Nose, & Throat: No Symptoms Respiratory: No Symptoms Cardiac: No Symptoms Abdominal/Gastrointestinal: Abdominal Pain (Epigastric pain) Genitourinary Symptoms: No Symptoms Musculoskeletal: No Symptoms Skin: No Symptoms Neurological: No Symptoms, Sensory Changes Psychological: No Symptoms Endocrine: No Symptoms Hematologic/Lymphatic: No Symptoms Immunological/Allergic: No Symptoms All Other Systems: Reviewed and Negative - Past Medical History Pertinent Past Medical History: Yes Neurological History: Epilepsy, Migraines, Seizures ENT History: No Pertinent History Cardiac History: Hypertension, Other Respiratory History: Asthma Endocrine Medical History: No Pertinent History Musculoskeletal History: No Pertinent History GI Medical History: GERD, Gallbladder Disease, Hemorrhoids History: No Pertinent History Psycho-Social History: Depression Female Reproductive Disorders: No Pertinent History Other Medical History: 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 post shoulder surgery,mitral valve prolapse - Past Surgical History Past Surgical History: Yes Neuro Surgical History: No Pertinent History Cardiac: No Pertinent History Respiratory: No Pertinent History Gastrointestinal: Cholecystectomy Genitourinary: No Pertinent History Musculoskeletal: Orthopedic Surgery Female Surgical History: Hysterectomy Other Surgical History: lt knee and lt shoulder - Social History Smoking Status: Never smoker Exposure to second hand smoke: No Drug Use: none Patient Lives Alone: No - Nursing Vital Signs Nursing Vital Signs: Initial Vital Signs Temperature 97.2 F 11/26/22 14:48 Pulse Rate 73 11/26/22 14:48 Respiratory Rate 20 11/26/22 14:48 Blood Pressure 153/95 11/26/22 14:48 O2 Sat by Pulse Oximetry 95 11/26/22 14:48 Pain Scale Pain Intensity 10 - Physical Exam General Appearance: no apparent distress, alert, anxiety Eye Exam: PERRL/EOMI, eyes nml inspection Ears, Nose, Throat Exam: normal ENT inspection, moist mucous membranes Neck Exam: normal inspection, non-tender, supple, full range of motion Respiratory Exam: normal breath sounds, lungs clear, airway intact, No chest tenderness, No respiratory distress Cardiovascular Exam: regular rate/rhythm, normal heart sounds, normal peripheral pulses Gastrointestinal/Abdomen Exam: soft, normal bowel sounds, tenderness (Epigastrium), guarding (Epigastrium to palpation), No rebound Pelvic Exam: not done Rectal Exam: not done Back Exam: normal inspection, normal range of motion, No CVA tenderness, No vertebral tenderness Extremity Exam: normal inspection, normal range of motion, pelvis stable Neurologic Exam: alert, oriented x 3, cooperative, director transition II-XII nml as tested, normal mood/affect, nml cerebellar function, nml station & gait, sensation nml Skin Exam: normal color, warm, dry Lymphatic Exam: No adenopathy SpO2 Interpretation: normal O2 Delivery: Room Air - Course Nursing assessment & vital signs reviewed: Yes EKG Interpreted by Me: RATE (74), Sinus Rhythm, NORMAL AXIS, NORMAL INTERVALS, NORMAL QRS, NORMAL ST-T, Other (No acute ischemic changes on today's twelve-lead EKG) Ordered Tests: Active Orders 24 hr Category Date Time Status IV Insertion STAT Care 11/26/22 14:47 Active ABDOMEN AND PELVIS W/0 CONTRAS [CT] Stat Exams 11/26/22 14:48 Completed AMYLASE Stat Lab 11/26/22 14:50 Completed CBC W DIFF Stat Lab 11/26/22 14:50 Completed CMP Stat Lab 11/26/22 14:50 Completed LIPASE Stat Lab 11/26/22 14:50 Completed Lactic Acid Stat Lab 11/26/22 14:47 Completed TROPONIN Q4H Lab 11/26/22 14:50 Completed TROPONIN Q4H Lab 11/26/22 19:00 Ordered TROPONIN Q4H Lab 11/26/22 23:00 Ordered UA W/RFX UR CULTURE Stat Lab 11/26/22 14:49 Completed Medication Summary Generic Name Dose Route Start Last Admin Trade Name Werner PRN Reason Stop Dose Admin Sodium Chloride 1,000 mls @ 999 mls/hr 11/26/22 14:47 11/26/22 15:07 Sodium Chloride 0.9% 1000 Ml IV 11/26/22 15:47 999 mls/hr .Q1H1M STA Administration Discontinued Medications Generic Name Dose Route Start Last Admin Trade Name Werner PRN Reason Stop Dose Admin Al Hydrox/Mg Hydrox/Simethicone Confirm 11/26/22 15:00 Mag Hydrox/Al Hydrox/Simeth 30 Ml Udcup Administered 11/26/22 15:01 Dose 30 ml .ROUTE .STK-MED ONE Sodium Chloride Confirm 11/26/22 15:00 Sodium Chloride 0.9% 1000 Ml Administered 11/26/22 15:01 Dose 1,000 mls @ ud .ROUTE .STK-MED ONE Lidocaine HCl Confirm 11/26/22 15:00 Lidocaine Hcl 2% Viscous 15 Ml Udcup Administered 11/26/22 15:01 Dose 15 ml .ROUTE .STK-MED ONE Magnesium Hydroxide 45 ml 11/26/22 14:48 11/26/22 15:13 Mag Hydrx/Alum Hyd/Simeth/Lido 45 Ml Bottle PO 11/26/22 14:49 45 ml STAT ONE Administration Morphine Sulfate 4 mg 11/26/22 14:47 11/26/22 15:12 Morphine Sulfate 4 Mg/Ml Injection IV 11/26/22 14:48 4 mg STAT ONE Administration Morphine Sulfate Confirm 11/26/22 14:59 Morphine Sulfate 4 Mg/Ml Injection Administered 11/26/22 15:00 Dose 4 mg .ROUTE .STK-MED ONE Ondansetron HCl 4 mg 11/26/22 14:47 11/26/22 15:07 Ondansetron Hcl 4 Mg/2 Ml Vial IV 11/26/22 14:48 4 mg STAT ONE Administration Ondansetron HCl Confirm 11/26/22 14:59 Ondansetron Hcl 4 Mg/2 Ml Vial Administered 11/26/22 15:00 Dose 4 mg .ROUTE .STK-MED ONE Lab/Rad Data: Laboratory Result Diagrams 11/26/22 14:50 11/26/22 14:50 Laboratory Results 11/26/22 11/26/22 11/26/22 Range/Units 14:50 14:50 14:50 WBC 10.9 H (4.0-10.5) x10^3/uL RBC 4.70 (4.1-5.4) x10^6/uL Hgb 14.5 (12.0-16.0) g/dL Hct 43.8 (35-47) % MCV 93.2 (78-100) fL MCH 30.9 (26-32) pg MCHC 33.1 (32-36) g/dL RDW 12.5 (11.5-14.0) % Plt Count 401 (150-450) x10^3/uL MPV 8.5 (7.5-11.0) fL Gran % 70.5 H (36.0-66.0) % Immature Gran % (Auto) 0.5 H (0.00-0.4) % Nucleat RBC Rel Count 0.0 (0.00-0.1) % Eos # (Auto) 0.31 (0-0.5) x10^3/uL Immature Gran # (Auto) 0.05 H (0.00-0.03) x10^3u/L Absolute Lymphs (auto) 2.01 (1.0-4.6) x10^3/uL Absolute Monos (auto) 0.79 (0.0-1.3) x10^3/uL Absolute Nucleated RBC 0.00 (0.00-0.01) x10^3u/L Lymphocytes % 18.4 L (24.0-44.0) % Monocytes % 7.2 (0.0-12.0) % Eosinophils % 2.8 (0.00-5.0) % Basophils % 0.6 (0.0-0.4) % Absolute Granulocytes 7.68 H (1.4-6.9) x10^3/uL Basophils # 0.07 (0-0.4) x10^3/uL Sodium 139 (137-145) mmol/L Potassium 3.6 (3.5-5.1) mmol/L Chloride 102 (98-107) mmol/L Carbon Dioxide 23 (22-30) mmol/L Anion Gap 17.0 H (5-15) MEQ/L BUN 14 (7-17) mg/dL Creatinine 0.83 (0.52-1.04) mg/dL Estimated GFR > 60.0 ML/MIN Glucose 131 H (74-106) mg/dL Lactic Acid (0.4-2.0) Calcium 9.5 (8.4-10.2) mg/dL Total Bilirubin 0.40 (0.2-1.3) mg/dL AST 32 (14-36) U/L ALT 26 (0-35) U/L Alkaline Phosphatase 109 (38-126) U/L Troponin I < 0.012 (0.000-0.034) ng/mL Serum Total Protein 8.8 H (6.3-8.2) g/dL Albumin 4.6 (3.5-5.0) g/dL Amylase 122 H (30-110) U/L Lipase 143 (23-300) U/L Urine Color (Yellow) Urine Appearance (Clear) Urine pH (4.6-8.0) Ur Specific [place] (1.005-1.030) Urine Protein (Negative) Urine Glucose (UA) (Negative) mg/dL Urine Ketones (Negative) Urine Blood (Negative) Urine Nitrite (Negative) Urine Bilirubin (Negative) Urine Urobilinogen (0.2) mg/dL Ur Leukocyte Esterase (Negative) U Hyaline Cast (Auto) (0-2) /LPF Urine Microscopic RBC (0-5) /HPF Urine Microscopic WBC (0-5) /HPF Ur Epithelial Cells (None Seen) /HPF Urine Bacteria (None Seen) /HPF Urine Culture Reflexed (NO) 11/26/22 11/26/22 Range/Units 14:49 14:47 WBC (4.0-10.5) x10^3/uL RBC (4.1-5.4) x10^6/uL Hgb (12.0-16.0) g/dL Hct (35-47) % MCV (78-100) fL MCH (26-32) pg MCHC (32-36) g/dL RDW (11.5-14.0) % Plt Count (150-450) x10^3/uL MPV (7.5-11.0) fL Gran % (36.0-66.0) % Immature Gran % (Auto) (0.00-0.4) % Nucleat RBC Rel Count (0.00-0.1) % Eos # (Auto) (0-0.5) x10^3/uL Immature Gran # (Auto) (0.00-0.03) x10^3u/L Absolute Lymphs (auto) (1.0-4.6) x10^3/uL Absolute Monos (auto) (0.0-1.3) x10^3/uL Absolute Nucleated RBC (0.00-0.01) x10^3u/L Lymphocytes % (24.0-44.0) % Monocytes % (0.0-12.0) % Eosinophils % (0.00-5.0) % Basophils % (0.0-0.4) % Absolute Granulocytes (1.4-6.9) x10^3/uL Basophils # (0-0.4) x10^3/uL Sodium (137-145) mmol/L Potassium (3.5-5.1) mmol/L Chloride (98-107) mmol/L Carbon Dioxide (22-30) mmol/L Anion Gap (5-15) MEQ/L BUN (7-17) mg/dL Creatinine (0.52-1.04) mg/dL Estimated GFR ML/MIN Glucose (74-106) mg/dL Lactic Acid 2.0 (0.4-2.0) Calcium (8.4-10.2) mg/dL Total Bilirubin (0.2-1.3) mg/dL AST (14-36) U/L ALT (0-35) U/L Alkaline Phosphatase (38-126) U/L Troponin I (0.000-0.034) ng/mL Serum Total Protein (6.3-8.2) g/dL Albumin (3.5-5.0) g/dL Amylase (30-110) U/L Lipase (23-300) U/L Urine Color Yellow (Yellow) Urine Appearance Clear (Clear) Urine pH 6.5 (4.6-8.0) Ur Specific [place] 1.015 (1.005-1.030) Urine Protein Negative (Negative) Urine Glucose (UA) Negative (Negative) mg/dL Urine Ketones Negative (Negative) Urine Blood Negative (Negative) Urine Nitrite Negative (Negative) Urine Bilirubin Negative (Negative) Urine Urobilinogen 0.2 (0.2) mg/dL Ur Leukocyte Esterase Trace A (Negative) U Hyaline Cast (Auto) NONE SEEN (0-2) /LPF Urine Microscopic RBC 0-2 (0-5) /HPF Urine Microscopic WBC 3-5 (0-5) /HPF Ur Epithelial Cells None Seen (None Seen) /HPF Urine Bacteria None Seen (None Seen) /HPF Urine Culture Reflexed NO (NO) - Progress Progress: improved, re-examined Progress Note: 11/26/22 15:26 CAT scan of the abdomen pelvis without contrast was interpreted by the radiologist and I reviewed the impression. There is a hiatal hernia with GE junction postsurgical changes. There are no acute intra-abdominal or intrapelvic findings. There is fecal stasis without obstruction. Patient's medical issue is 1 of moderate complexity. The level of complexity an d the work-up performed is based on the review of the patient's past medical history, review of the patient's medication list, review of the patient's drug allergy list, history of present illness and physical findings on examination. Work-up includes placement of intravenous line, infusion of normal saline solution 1 L, infusion of morphine 4 mg intravenously and infusion of 4 mg intravenous Zofran. The patient states that she is not allergic to hydrocodone. She has had in the past and she has had Lyman 5/325 medication in the past. Patient does not have any radiographic findings of acute intra-abdominal or intrapelvic findings. The twelve-lead EKG shows normal sinus rhythm without aileen dence of any acute ischemic changes. We are awaiting the results of her remainder blood work including a CBC, CMP, amylase, lipase and urinalysis as well as troponin level. 11/26/22 15:29 Patient does not have a urinary tract infection. She has a slightly elevated amylase level of 122 (normal high is 110) her lipase is normal. There is no radiographic evidence of pancreatitis. Counseled pt/family regarding: lab results, diagnosis, need for follow-up, rad results Medical Desision Making - Risk of complications Minimal Risk: Minimal risk of morbidity - Departure Departure Disposition: Home Clinical Impression: Abdominal pain Condition: Stable Critical Care Time: No Referrals: ANGELIKA WISE MD [Primary Care Provider] - Follow up/PCP as directed Additional Instructions: Avoid fatty greasy spicy foods. Follow-up with your primary care provider for further evaluation management. Continue your other medication as prescribed. Prescriptions: Ondansetron ODT 4 MG [Zofran Odt 4 mg] 4 mg PO Q6H PRN PRN #10 tablet PRN Reason: Vomiting
[2022-11-26] MEDS ORDERED: Sodium Chloride 0.9% 1000 ML 1,000 ML IV STA (14:47)
[2022-11-26] MEDS ORDERED: Zofran 4 MG/2 ML VIAL IV ONE (14:47)
[2022-11-26] MEDS ORDERED: MORPHINE SULFATE 4 MG INJ IV ONE (14:47)
[2022-11-26] MEDS ORDERED: GI COCKTAIL 45 ML (Maalox/Lidocaine) PO ONE (14:48)
[2022-11-26 14:49] VITALS: BP 153/95; PULSE 73; O2SAT 95
[2022-11-26 14:58] LABS: Absolute Neutrophil Ct (ANC) 7.68 x10^3/uL (1.4-6.9); BASOPHIL % 0.6 % (0.0-0.4); Basophil (Absolute #) 0.07 x10^3/uL (0-0.4); Eosinophil % 2.8 % (0.00-5.0); Eosinophil (Absolute #) 0.31 x10^3/uL (0-0.5); Hematocrit 43.8 % (35-47); Hemoglobin 14.5 g/dL (12.0-16.0); IMMATURE GRAN # 0.05 x10^3u/L (0.00-0.03); IMMATURE GRAN % 0.5 % (0.00-0.4); Lymphocyte (Absolute #) 2.01 x10^3/uL (1.0-4.6); Lymphocytes % 18.4 % (24.0-44.0); Mean Cell Volume 93.2 fL (78-100); Mean Corpuscular Hemoglobin 30.9 pg (26-32); Mean Corpuscular Hgb Concent. 33.1 g/dL (32-36); Mean Platelet Volume 8.5 fL (7.5-11.0); Monocyte (Absolute #) 0.79 x10^3/uL (0.0-1.3); Monocytes % 7.2 % (0.0-12.0); Neutrophil % 70.5 % (36.0-66.0); Platelet Count 401 x10^3/uL (150-450); Red Cell Distribution Width 12.5 % (11.5-14.0); White Blood Count 10.9 x10^3/uL (4.0-10.5)
[2022-11-26] MEDS ORDERED: MORPHINE SULFATE 4 MG INJ ONE (14:59)
[2022-11-26] MEDS ORDERED: Zofran 4 MG/2 ML VIAL ONE (14:59)
[2022-11-26] MEDS ORDERED: XYLOCAINE VISCOUS 2% 15 ML CUP ONE (15:00)
[2022-11-26] MEDS ORDERED: Sodium Chloride 0.9% 1000 ML 1,000 ML ONE (15:00)
[2022-11-26] MEDS ORDERED: MAALOX ES 30 ML UNIT DOSE ONE (15:00)
[2022-11-26 15:03] LABS: Appearance Clear (Clear); Bacteria None Seen /HPF (None Seen); Bilirubin Negative (Negative); Blood Negative (Negative); Epithelial Cells None Seen /HPF (None Seen); Glucose, Urine Negative (Negative); Hyaline Casts NONE SEEN /LPF (0-2); Ketones Negative (Negative); Leukocyte Esterase Trace (Negative); Nitrite Negative (Negative); Ph 6.5 (4.6-8.0); Protein,Urine Dip Negative (Negative); RBC 0-2 /HPF (0-5); Specific Gravity 1.015 (1.005-1.030); Urobilinogen 0.2 mg/dL (0.2)
[2022-11-26 15:06] LABS: ADD URINE CULTURE? NO (NO)
[2022-11-26 15:12] LABS: ALBUMIN 4.6 g/dL (3.5-5.0); ALKALINE PHOSPHATASE 109 U/L (38-126); AMYLASE 122 U/L (30-110); BLOOD UREA NITROGEN 14 mg/dL (7-17); CHLORIDE 102 mmol/L (98-107); Calcium 9.5 mg/dL (8.4-10.2); Carbon Dioxide 23 mmol/L (22-30); Creatinine 1 0.83 mg/dL (0.52-1.04); EST GLOMERULAR FILTRATION RATE > 60.0 ML/MIN; Glucose 131 mg/dL (74-106); LIPASE 143 U/L (23-300); Potassium 3.6 mmol/L (3.5-5.1); SGOT/AST 32 U/L (14-36); SGPT/ALT 26 U/L (0-35); SODIUM 139 mmol/L (137-145); Total Protein 8.8 g/dL (6.3-8.2)
--- NOTE | 2022-11-26 15:19 | XRAY ---
Indication: Abdomen pain 1 month. Dry heaves. Multiple contiguous axial images obtained through the abdomen and pelvis without contrast. Comparison: None Lung bases demonstrate minimal right base fibrosis/scarring. No infiltrate or effusion. Heart not enlarged. Moderate hiatal hernia with gastroesophageal junction postsurgical changes. Noncontrasted stomach and bowel loops appear nonobstructed. Appendix not visualized. Mild/moderate diffuse scattered colonic fecal debris throughout. Mild sigmoid diverticulosis without diverticulitis. Left kidney demonstrates a few benign-appearing punctate calculi. Previous cholecystectomy and hysterectomy. No free fluid/air. Remaining liver, pancreas, spleen, adrenal glands, kidneys, ureters, and bladder are unremarkable for noncontrast exam. Mild scattered aortoiliac calcifications without AAA. Osseous structures intact with minimal degenerative changes throughout the spine and mild levorotoscoliosis centered at L3. Impression: 1. Hiatal hernia with gastroesophageal junction postsurgical changes. 2. Fecal stasis without obstruction. 3. Chronic findings including sigmoid diverticulosis, nonobstructing left renal punctate calculi, arteriosclerotic disease, and chronic bony findings. 4. Remaining CT abdomen/pelvis without contrast exam is negative.
== END 2022-11-26 15:42 | disposition home or self-care (01) ==
LOC: ED 14:27
DX: R10.13 Epigastric pain (principal); E78.5 Hyperlipidemia, unspecified; I10 Essential (primary) hypertension; K21.9 Gastro-esophageal reflux disease without esophagitis; Z79.899 Other long term (current) drug therapy
CPT/HCPCS: 36000; 36415; 74176; 80053; 81001; 82150; 83605; 83690; 84484; 85025; 96374; 96375; 99284; J2270; J2405; A9270-GY

== ENCOUNTER 2023-01-25 14:40 | Emergency (ER) | payer OTHER ==
--- NOTE | 2023-01-25 14:42 | ERPHSYRPT ---
- History of Present Illness Time Seen by Provider: 01/25/23 14:42 Historian: patient Exam Limitations: no limitations Physician History: This is a 67-year-old white female patient who was brought to the emergency department by the ambulance. Additional, independent history was provided by the patient's granddaughter/family member because of vomiting and headache symp toms. Patient has had a cholecystectomy and a hysterectomy in the past. The patient's primary issue today, I believe, is she is out of her medications that controlled her anxiety, depression and migraine headaches as well as seizure disorder. She is very concerned that she may have a seizure or panic attack. The patient is switching over her prescription service from [facility] to [facility]. Our nurse in the emergency department found out that [facility] was going to fill the prescriptions and deliver them to the patient. However there was a problem with the patient's medical insurance. Somehow, medical insurance states that the patient should still have 20 more days of her medication. Our nurse contacted [facility] pharmacy. They told our nurse that that is incorrect. Some of the medicines that she has have actually run out and those are the ones that the patient is concerned about. The patient is not having chest pain she is not having shortness of breath. We did tell the patient and family member that we would do what we can to figure out what happened and formulate a plan for her. However, she is aware that she, the patient, may need to deal with this as an outpatient later today and tomorrow. Patient has a history of hyperlipidemia, seizure disorder, gastroesophageal reflux disease, hypertension, chronic anemia, anxiety, depression, migraine headache and asthma. Medications include effects or, Topamax, simvastatin, Protonix, metoprolol, fexofenadine, Aptiom, Norvasc and diazepam. Timing/Duration: day(s) (6) Abdominal Pain Onset Location: epigastric Pain Radiation: no radiation (Mild) Severity of Pain-Max: mild Severity of Pain-Current: mild Modifying Factors: Improves With: vomiting Associated Symptoms: headache, loss of appetite, nausea, vomiting Previous symptoms: same symptoms as today, no recent treatment Allergies/Adverse Reactions: hydrocodone bitartrate [From [place]] Allergy (Mild, Verified 01/25/23 14:50) Rash Sulfa (Sulfonamide Antibiotics) [Sulfa(Sulfonamide Antibiotics)] Allergy (Mild, Verified 01/25/23 14:50) patient unsure as to reaction escitalopram oxalate [From Lexapro] Allergy (Unknown, Verified 01/25/23 14:50) Home Medications: Topiramate [Topamax] See Rx Instructions .ROUTE .COMPLEX 11/03/11 [History] Venlafaxine HCl [Effexor] 150 mg PO DAILY 11/03/11 [History] Amlodipine Besylate 5 mg [Norvasc 5 mg] 5 mg PO DAILY 03/12/14 [History] Metoprolol Tartrate 25 mg [Lopressor 25MG Tab] 12.5 mg PO BID 03/12/14 [History] Simvastatin 40 mg [Zocor 40 mg] 40 mg PO DAILY 08/17/16 [History] Diazepam 5 mg [Valium 5 MG] 2 mg PO DAILY 11/26/22 [History] Eslicarbazepine Acetate [Aptiom] 800 mg PO DAILY 11/26/22 [History] Fexofenadine HCl 180 mg PO DAILY 11/26/22 [History] Levocetirizine Dihydrochloride 5 mg PO DAILY 11/26/22 [History] Pantoprazole 40 mg [Protonix 40 mg IV] 40 mg PO BID 11/26/22 [History] Hx Tetanus, Diphtheria Vaccination/Date Given: No Hx Influenza Vaccination/Date Given: No Hx Pneumococcal Vaccination/Date Given: No Travel Risk - International Travel Have you traveled outside of the country in past 3 weeks: No - Coronavirus Screening Are you exhibiting any of the following symptoms?: No Close contact with a COVID-19 positive Pt in past 14-21 Days: No - Vaccine Status Have you recieved a Covid-19 vaccination: No - Review of Systems Constitutional: No Symptoms Eyes: No Symptoms Ears, Nose, & Throat: No Symptoms Respiratory: No Symptoms Cardiac: No Symptoms Abdominal/Gastrointestinal: Abdominal Pain, Nausea, Vomiting, Appetite Changes (Mild) Genitourinary Symptoms: No Symptoms Musculoskeletal: No Symptoms Skin: No Symptoms Neurological: Headache Psychological: No Symptoms Endocrine: No Symptoms Hematologic/Lymphatic: No Symptoms Immunological/Allergic: No Symptoms All Other Systems: Reviewed and Negative - Past Medical History Pertinent Past Medical History: Yes Neurological History: Epilepsy, Migraines, Seizures ENT History: No Pertinent History Cardiac History: Hypertension, Other Respiratory History: Asthma Endocrine Medical History: No Pertinent History Musculoskeletal History: No Pertinent History GI Medical History: GERD, Gallbladder Disease, Hemorrhoids History: No Pertinent History Psycho-Social History: Depression Female Reproductive Disorders: No Pertinent History Other Medical History: 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 post shoulder surgery,mitral valve prolapse - Past Surgical History Past Surgical History: Yes Neuro Surgical History: No Pertinent History Cardiac: No Pertinent History Respiratory: No Pertinent History Gastrointestinal: Cholecystectomy Genitourinary: No Pertinent History Musculoskeletal: Orthopedic Surgery Female Surgical History: Hysterectomy Other Surgical History: lt knee and lt shoulder - Social History Smoking Status: Never smoker Exposure to second hand smoke: No Drug Use: none Patient Lives Alone: No - Nursing Vital Signs Nursing Vital Signs: Initial Vital Signs Temperature 98 F 01/25/23 14:43 Pulse Rate 100 H 01/25/23 14:43 Respiratory Rate 17 01/25/23 14:43 Blood Pressure 133/100 01/25/23 14:43 O2 Sat by Pulse Oximetry 98 01/25/23 14:43 Pain Scale Pain Intensity 0 - Physical Exam General Appearance: no apparent distress, alert, anxiety Eye Exam: PERRL/EOMI, eyes nml inspection Ears, Nose, Throat Exam: normal ENT inspection, moist mucous membranes Neck Exam: normal inspection, non-tender, supple, full range of motion Respiratory Exam: normal breath sounds, lungs clear, airway intact, No chest tenderness, No respiratory distress Cardiovascular Exam: regular rate/rhythm, normal heart sounds, normal peripheral pulses Gastrointestinal/Abdomen Exam: soft, normal bowel sounds, No tenderness Pelvic Exam: not done Rectal Exam: not done Back Exam: normal inspection, normal range of motion, No CVA tenderness, No vertebral tenderness Extremity Exam: normal inspection, normal range of motion, pelvis stable Neurologic Exam: alert, oriented x 3, cooperative, 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, normal mood/affect, nml cerebellar function, nml station & gait, sensation nml Skin Exam: normal color, warm, dry Lymphatic Exam: No adenopathy SpO2 Interpretation: normal O2 Delivery: Room Air - Course Nursing assessment & vital signs reviewed: Yes Ordered Tests: Active Orders 24 hr Category Date Time Status EKG-ER Only STAT Care 01/25/23 15:10 Active IV Insertion STAT Care 01/25/23 15:10 Active cath [Cath for Specimen-Straight] STAT Care 01/25/23 15:24 Active AMYLASE Stat Lab 01/25/23 15:10 Completed CBC W DIFF Stat Lab 01/25/23 15:10 Completed CMP Stat Lab 01/25/23 15:10 Completed CULTURE,URINE Stat Lab 01/25/23 15:25 Received LIPASE Stat Lab 01/25/23 15:10 Completed UA W/RFX UR CULTURE Stat Lab 01/25/23 15:25 Completed Medication Summary Discontinued Medications Generic Name Dose Route Start Last Admin Trade Name Werner PRN Reason Stop Dose Admin Hydromorphone HCl 1 mg 01/25/23 15:10 01/25/23 15:18 Hydromorphone 1 Mg/1ml Inj IV 01/25/23 15:11 1 mg STAT ONE Administration Hydromorphone HCl Confirm 01/25/23 15:16 Hydromorphone 1 Mg/1ml Inj Administered 01/25/23 15:17 Dose 1 mg .ROUTE .STK-MED ONE Sodium Chloride 1,000 mls @ 999 mls/hr 01/25/23 15:10 01/25/23 16:18 Sodium Chloride 0.9% 1000 Ml IV 01/25/23 16:10 Infused .Q1H1M STA Infusion Sodium Chloride Confirm 01/25/23 15:16 Sodium Chloride 0.9% 1000 Ml Administered 01/25/23 15:17 Dose 1,000 mls @ ud .ROUTE .STK-MED ONE Lorazepam 1 mg 01/25/23 15:12 01/25/23 15:18 Lorazepam 2 Mg/1 Ml 2 Mg Vial IV 01/25/23 15:13 1 mg STAT ONE Administration Lorazepam Confirm 01/25/23 15:16 Lorazepam 2 Mg/1 Ml 2 Mg Vial Administered 01/25/23 15:17 Dose 2 mg .ROUTE .STK-MED ONE Ondansetron HCl 4 mg 01/25/23 15:10 01/25/23 15:18 Ondansetron Hcl 4 Mg/2 Ml Vial IV 01/25/23 15:11 4 mg STAT ONE Administration Ondansetron HCl Confirm 01/25/23 15:15 Ondansetron Hcl 4 Mg/2 Ml Vial Administered 01/25/23 15:16 Dose 4 mg .ROUTE .STK-MED ONE Pantoprazole Sodium 40 mg 01/25/23 15:10 01/25/23 15:18 Pantoprazole 40 Mg Vial IV 01/25/23 15:11 40 mg STAT ONE Administration Pantoprazole Sodium Confirm 01/25/23 15:16 Pantoprazole 40 Mg Vial Administered 01/25/23 15:17 Dose 40 mg IV .K-MED ONE Lab/Rad Data: Laboratory Result Diagrams 01/25/23 15:10 01/25/23 15:10 Laboratory Results 01/25/23 01/25/23 01/25/23 Range/Units 15:25 15:10 15:10 WBC 10.3 (4.0-10.5) x10^3/uL RBC 4.60 (4.1-5.4) x10^6/uL Hgb 14.2 (12.0-16.0) g/dL Hct 42.3 (35-47) % MCV 92.0 (78-100) fL MCH 30.9 (26-32) pg MCHC 33.6 (32-36) g/dL RDW 12.1 (11.5-14.0) % Plt Count 360 (150-450) x10^3/uL MPV 8.9 (7.5-11.0) fL Gran % 64.6 (36.0-66.0) % Immature Gran % (Auto) 0.3 (0.00-0.4) % Nucleat RBC Rel Count 0.0 (0.00-0.1) % Eos # (Auto) 0.21 (0-0.5) x10^3/uL Immature Gran # (Auto) 0.03 (0.00-0.03) x10^3u/L Absolute Lymphs (auto) 2.46 (1.0-4.6) x10^3/uL Absolute Monos (auto) 0.87 (0.0-1.3) x10^3/uL Absolute Nucleated RBC 0.00 (0.00-0.01) x10^3u/L Lymphocytes % 23.9 L (24.0-44.0) % Monocytes % 8.5 (0.0-12.0) % Eosinophils % 2.0 (0.00-5.0) % Basophils % 0.7 (0.0-0.4) % Absolute Granulocytes 6.64 (1.4-6.9) x10^3/uL Basophils # 0.07 (0-0.4) x10^3/uL Sodium 136 L (137-145) mmol/L Potassium 3.7 (3.5-5.1) mmol/L Chloride 102 (98-107) mmol/L Carbon Dioxide 20 L (22-30) mmol/L Anion Gap 17.5 H (5-15) MEQ/L BUN 21 H (7-17) mg/dL Creatinine 0.96 (0.52-1.04) mg/dL Estimated GFR > 60.0 ML/MIN Glucose 132 H (74-106) mg/dL Calcium 10.0 (8.4-10.2) mg/dL Total Bilirubin 0.60 (0.2-1.3) mg/dL AST 31 (14-36) U/L ALT 25 (0-35) U/L Alkaline Phosphatase 100 (38-126) U/L Serum Total Protein 7.9 (6.3-8.2) g/dL Albumin 4.3 (3.5-5.0) g/dL Amylase 106 (30-110) U/L Lipase 144 (23-300) U/L Urine Color Yellow (Yellow) Urine Appearance Clear (Clear) Urine pH 5.5 (4.6-8.0) Ur Specific [place] 1.020 (1.005-1.030) Urine Protein Negative (Negative) Urine Glucose (UA) Negative (Negative) mg/dL Urine Ketones Negative (Negative) Urine Blood Negative (Negative) Urine Nitrite Negative (Negative) Urine Bilirubin Negative (Negative) Urine Urobilinogen 0.2 (0.2) mg/dL Ur Leukocyte Esterase Negative (Negative) U Hyaline Cast (Auto) NONE SEEN (0-2) /LPF Urine Microscopic RBC 0-2 (0-5) /HPF Urine Microscopic WBC 3-5 (0-5) /HPF Ur Epithelial Cells Rare (None Seen) /HPF Urine Bacteria None Seen (None Seen) /HPF Urine Culture Reflexed NO (NO) - Progress Progress: improved, re-examined Progress Note: 01/25/23 16:31 This patient's medical issue is 1 of moderate complexity. The level of complexity and the work-up performed is based on review of the patient's past medical history, medication list, drug allergy list, history of present illness and physical findings on examination. Work-up in this patient includes placement of intravenous line, infusion of Zofran and Dilaudid pain medicine intravenously as well as intravenous Ativan 1 mg. We also infused 1 L normal saline solution. We provided the patient with Protonix 40 mg intravenously. We also ordered a CBC, CMP, twelve-lead EKG and urinalysis. I reviewed the work-up results. Patient has no acute, emergent medical issue. I believe the patient is anxious about her health and is somewhat having a panic attack. In addition she has been out of some of her medications and she may have mild, early withdrawal symptoms. The emergency room nursing staff has been in contact with the [facility] pharmacy and waited for the pharmacy and the nurses will provide the patient with instructions to follow-up tomorrow with her primary care physician and the pharmacies to expedite her receiving her medications. Counseled pt/family regarding: lab results, diagnosis, need for follow-up Medical Desision Making - Independent Historian Additional History obtained from: Family (Granddaughter) - Discussion of managment Care discussed with:: PCP (Nursing staff discussed with PCP office staff in order to either secure a follow-up appointment in the next day or 2 or to have the PCP call in the prescriptions that the patient is out of.) - Risk of complications Low Risk: Low risk of morbidity from additional dx testing or treatment - Departure Departure Disposition: Home Clinical Impression: Anxiety about health, Panic disorder, Has run out of medications Condition: Stable Critical Care Time: No Referrals: ANGELIKA WISE MD [Primary Care Provider] - Follow up/PCP as directed Additional Instructions: Drink plenty of fluids. Take the medications that you have not run out of as prescribed. Follow-up as an outpatient, with your primary care provider, for further evaluation and management.
[2023-01-25 14:55] VITALS: TEMP 98
[2023-01-25] MEDS ORDERED: PROTONIX 40 MG IV IV ONE ×2 (15:10→15:16)
[2023-01-25] MEDS ORDERED: Hydromorphone 1 mg/ml Injection IV ONE (15:10)
[2023-01-25] MEDS ORDERED: Sodium Chloride 0.9% 1000 ML 1,000 ML IV STA (15:10)
[2023-01-25] MEDS ORDERED: Zofran 4 MG/2 ML VIAL IV ONE (15:10)
[2023-01-25] MEDS ORDERED: Ativan 2 MG/1 ML VIAL IV ONE (15:12)
[2023-01-25] MEDS ORDERED: Zofran 4 MG/2 ML VIAL ONE (15:15)
[2023-01-25] MEDS ORDERED: Ativan 2 MG/1 ML VIAL ONE (15:16)
[2023-01-25] MEDS ORDERED: Sodium Chloride 0.9% 1000 ML 1,000 ML ONE (15:16)
[2023-01-25] MEDS ORDERED: Hydromorphone 1 mg/ml Injection ONE (15:16)
[2023-01-25 15:22] LABS: Absolute Neutrophil Ct (ANC) 6.64 x10^3/uL (1.4-6.9); BASOPHIL % 0.7 % (0.0-0.4); Basophil (Absolute #) 0.07 x10^3/uL (0-0.4); Eosinophil (Absolute #) 0.21 x10^3/uL (0-0.5); Hematocrit 42.3 % (35-47); Hemoglobin 14.2 g/dL (12.0-16.0); IMMATURE GRAN # 0.03 x10^3u/L (0.00-0.03); IMMATURE GRAN % 0.3 % (0.00-0.4); Lymphocyte (Absolute #) 2.46 x10^3/uL (1.0-4.6); Lymphocytes % 23.9 % (24.0-44.0); Mean Corpuscular Hemoglobin 30.9 pg (26-32); Mean Corpuscular Hgb Concent. 33.6 g/dL (32-36); Mean Platelet Volume 8.9 fL (7.5-11.0); Monocyte (Absolute #) 0.87 x10^3/uL (0.0-1.3); Monocytes % 8.5 % (0.0-12.0); Neutrophil % 64.6 % (36.0-66.0); Platelet Count 360 x10^3/uL (150-450); Red Cell Distribution Width 12.1 % (11.5-14.0); White Blood Count 10.3 x10^3/uL (4.0-10.5)
[2023-01-25 15:40] LABS: ALBUMIN 4.3 g/dL (3.5-5.0); ALKALINE PHOSPHATASE 100 U/L (38-126); AMYLASE 106 U/L (30-110); ANION GAP 17.5 MEQ/L (5-15); BLOOD UREA NITROGEN 21 mg/dL (7-17); CHLORIDE 102 mmol/L (98-107); Carbon Dioxide 20 mmol/L (22-30); Creatinine 1 0.96 mg/dL (0.52-1.04); EST GLOMERULAR FILTRATION RATE > 60.0 ML/MIN; Glucose 132 mg/dL (74-106); LIPASE 144 U/L (23-300); Potassium 3.7 mmol/L (3.5-5.1); SGOT/AST 31 U/L (14-36); SGPT/ALT 25 U/L (0-35); SODIUM 136 mmol/L (137-145); Total Protein 7.9 g/dL (6.3-8.2)
[2023-01-25 16:16] LABS: Appearance Clear (Clear); Bacteria None Seen /HPF (None Seen); Bilirubin Negative (Negative); Blood Negative (Negative); Glucose, Urine Negative (Negative); Hyaline Casts NONE SEEN /LPF (0-2); Ketones Negative (Negative); Leukocyte Esterase Negative (Negative); Nitrite Negative (Negative); Ph 5.5 (4.6-8.0); Protein,Urine Dip Negative (Negative); RBC 0-2 /HPF (0-5); Urobilinogen 0.2 mg/dL (0.2)
[2023-01-25 16:17] LABS: ADD URINE CULTURE? NO (NO); Epithelial Cells Rare /HPF (None Seen)
[2023-01-25 16:53] VITALS: BP 119/80; PULSE 71; RESP 15; O2SAT 98
== END 2023-01-25 17:08 | disposition home or self-care (01) ==
LOC: ED 14:40
DX: F45.9 Somatoform disorder, unspecified (principal); F41.0 Panic disorder [episodic paroxysmal anxiety]; Z75.8 Other problems related to medical facilities and other health care; R51.9 Headache, unspecified; R11.2 Nausea with vomiting, unspecified; E78.5 Hyperlipidemia, unspecified; I10 Essential (primary) hypertension; Z79.899 Other long term (current) drug therapy; Z28.310 Unvaccinated for COVID-19
CPT/HCPCS: 36000; 36415; 80053; 81001; 82150; 83690; 85025; 87086; 93005; 96374; 96375; 99284; P9612; J1170; J2060; J2405

== ENCOUNTER 2023-01-26 18:05 | Emergency (ER) | payer OTHER ==
[2023-01-26 18:22] VITALS: BP 126/103; PULSE 76; RESP 20; TEMP 97.2; O2SAT 98
[2023-01-26] MEDS ORDERED: Sodium Chloride 0.9% 1000 ML 1,000 ML ONE (18:27)
[2023-01-26] MEDS: Sodium Chloride 0.9% 1000 ML 1,000 ML IV SCH (18:28)
--- NOTE | 2023-01-26 18:29 | ERPHSYRPT ---
- History of Present Illness Time Seen by Provider: 01/26/23 18:26 Historian: patient Exam Limitations: no limitations Patient Subjective Stated Complaint: PT states "I was here yesterday and they took blood and did an ekg. I am not any better. I am vomiting and my belly is killing me." Triage Nursing Assessment: PT presented alert and oriented X 3, skin pwd. Pt able to speak in shaking sentences pt has tremors, pt is tearful. PT has been out of her meds and is slowly getting them back. Physician History: Patient is a 67-year-old female presents to our ED with abdominal pain. Patient states yesterday she was here in our hospital for the same. Pain described as a generalized ache. No trauma. No fever. Pain associated with vomiting. Symptoms have been constant. No specific worsening improving factors. Patient denies history of the same. Pain is mild to moderate in intensity. No specific worsening or improving factors. Patient voices no other complaints or concerns at this time. Portions of this note were created with voice recognition technology. There may be grammatical, spelling, punctuation or sound alike errors Timing/Duration: yesterday Activities at Onset: none Quality: aching Abdominal Pain Onset Location: generalized abdomen Pain Radiation: no radiation Severity of Pain-Max: moderate Severity of Pain-Current: mild Associated Symptoms: denies symptoms Previous symptoms: no prior history Allergies/Adverse Reactions: hydrocodone bitartrate [From [place]] Allergy (Mild, Verified 01/25/23 14:50) Rash Sulfa (Sulfonamide Antibiotics) [Sulfa(Sulfonamide Antibiotics)] Allergy (Mild, Verified 01/25/23 14:50) patient unsure as to reaction escitalopram oxalate [From Lexapro] Allergy (Unknown, Verified 01/25/23 14:50) Home Medications: Topiramate [Topamax] See Rx Instructions .ROUTE .COMPLEX 11/03/11 [History] Venlafaxine HCl [Effexor] 150 mg PO DAILY 11/03/11 [History] Amlodipine Besylate 5 mg [Norvasc 5 mg] 5 mg PO DAILY 03/12/14 [History] Metoprolol Tartrate 25 mg [Lopressor 25MG Tab] 12.5 mg PO BID 03/12/14 [History] Simvastatin 40 mg [Zocor 40 mg] 40 mg PO DAILY 08/17/16 [History] Diazepam 5 mg [Valium 5 MG] 2 mg PO DAILY 11/26/22 [History] Eslicarbazepine Acetate [Aptiom] 800 mg PO DAILY 11/26/22 [History] Fexofenadine HCl 180 mg PO DAILY 11/26/22 [History] Levocetirizine Dihydrochloride 5 mg PO DAILY 11/26/22 [History] Pantoprazole 40 mg [Protonix 40 mg IV] 40 mg PO BID 11/26/22 [History] Hx Tetanus, Diphtheria Vaccination/Date Given: No Hx Influenza Vaccination/Date Given: No Hx Pneumococcal Vaccination/Date Given: No Immunizations Up to Date: No Travel Risk - International Travel Have you traveled outside of the country in past 3 weeks: No - Coronavirus Screening Are you exhibiting any of the following symptoms?: Yes Symptoms: Vomiting/Diarrhea, Headaches/Body Aches/Fatigue - Vaccine Status Have you recieved a Covid-19 vaccination: No - Review of Systems Constitutional: No Symptoms, No Fever, No Chills Eyes: No Symptoms Ears, Nose, & Throat: No Symptoms Respiratory: No Symptoms, No Cough, No Dyspnea Cardiac: No Symptoms, No Chest Pain, No Edema, No Syncope Abdominal/Gastrointestinal: No Symptoms, No Abdominal Pain, No Nausea, No Vomiting, No Diarrhea Genitourinary Symptoms: No Symptoms, No Dysuria Musculoskeletal: No Symptoms, No Back Pain, No Neck Pain Skin: No Symptoms, No Rash Neurological: No Symptoms, No Dizziness, No Focal Weakness, No Sensory Changes Psychological: No Symptoms Endocrine: No Symptoms Hematologic/Lymphatic: No Symptoms Immunological/Allergic: No Symptoms All Other Systems: Reviewed and Negative - Past Medical History Pertinent Past Medical History: Yes Neurological History: Epilepsy, Migraines, Seizures ENT History: No Pertinent History Cardiac History: Hypertension, Other Respiratory History: Asthma Endocrine Medical History: No Pertinent History Musculoskeletal History: No Pertinent History GI Medical History: GERD, Gallbladder Disease, Hemorrhoids History: No Pertinent History Psycho-Social History: Depression Female Reproductive Disorders: No Pertinent History Other Medical History: 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 post shoulder surgery,mitral valve prolapse - Past Surgical History Past Surgical History: Yes Neuro Surgical History: No Pertinent History Cardiac: No Pertinent History Respiratory: No Pertinent History Gastrointestinal: Cholecystectomy Genitourinary: No Pertinent History Musculoskeletal: Orthopedic Surgery Female Surgical History: Hysterectomy Other Surgical History: lt knee and lt shoulder - Social History Smoking Status: Never smoker Exposure to second hand smoke: No Drug Use: none Patient Lives Alone: No - Nursing Vital Signs Nursing Vital Signs: Initial Vital Signs Temperature 97.2 F 01/26/23 18:15 Pulse Rate 76 01/26/23 18:15 Respiratory Rate 20 01/26/23 18:15 Blood Pressure 126/103 01/26/23 18:15 O2 Sat by Pulse Oximetry 98 01/26/23 18:15 Pain Scale Pain Intensity 10 - Physical Exam General Appearance: no apparent distress, alert Eye Exam: PERRL/EOMI, eyes nml inspection Ears, Nose, Throat Exam: normal ENT inspection, pharynx normal, moist mucous membranes Neck Exam: normal inspection, non-tender, supple, full range of motion Respiratory Exam: normal breath sounds, lungs clear, airway intact, No respiratory distress Cardiovascular Exam: regular rate/rhythm, normal heart sounds, normal peripheral pulses Gastrointestinal/Abdomen Exam: soft, No tenderness, No mass Back Exam: normal inspection, normal range of motion, No CVA tenderness, No vertebral tenderness Extremity Exam: normal inspection, normal range of motion, pelvis stable Neurologic Exam: alert, oriented x 3, cooperative, normal mood/affect, nml cerebellar function, sensation nml, No motor deficits Skin Exam: normal color, warm, dry Lymphatic Exam: No adenopathy SpO2 Interpretation: normal SpO2: 98 O2 Delivery: Room Air - Course Nursing assessment & vital signs reviewed: Yes EKG Interpreted by Me: RATE (72), Sinus Rhythm, NORMAL AXIS, NORMAL INTERVALS - CT Exams Abdomen/Pelvis CT Interpretation: Tele-radiologist Report (Stable hiatal hernia with partial intrathoracic stomach and sigmoid diverticulosis. No new acute findings.) Ordered Tests: Active Orders 24 hr Category Date Time Status IV Insertion STAT Care 01/26/23 18:24 Active ABDOMEN AND PELVIS W CONTRAST [CT] Stat Exams 01/26/23 18:25 Taken CBC W DIFF Stat Lab 01/26/23 16:10 Completed CMP Stat Lab 01/26/23 16:10 Completed LIPASE Stat Lab 01/26/23 16:10 Completed TROPONIN Q4H Lab 01/26/23 16:10 Completed TROPONIN Q4H Lab 01/26/23 22:30 Ordered TROPONIN Q4H Lab 01/27/23 02:30 Ordered UA W/RFX UR CULTURE Stat Lab 01/26/23 20:11 Ordered Medication Summary Generic Name Dose Route Start Last Admin Trade Name Werner PRN Reason Stop Dose Admin Sodium Chloride 1,000 mls @ 100 mls/hr 01/26/23 18:30 01/26/23 18:28 Sodium Chloride 0.9% 1000 Ml IV 02/25/23 18:29 100 mls/hr .Q10H ARLET Administration Lab/Rad Data: Laboratory Result Diagrams 01/26/23 16:10 01/26/23 16:10 Laboratory Results 01/26/23 01/26/23 01/26/23 Range/Units 16:10 16:10 16:10 WBC 8.7 (4.0-10.5) x10^3/uL RBC 4.30 (4.1-5.4) x10^6/uL Hgb 13.5 (12.0-16.0) g/dL Hct 40.3 (35-47) % MCV 93.7 (78-100) fL MCH 31.4 (26-32) pg MCHC 33.5 (32-36) g/dL RDW 11.9 (11.5-14.0) % Plt Count 334 (150-450) x10^3/uL MPV 8.9 (7.5-11.0) fL Gran % 62.4 (36.0-66.0) % Immature Gran % (Auto) 0.3 (0.00-0.4) % Nucleat RBC Rel Count 0.0 (0.00-0.1) % Eos # (Auto) 0.20 (0-0.5) x10^3/uL Immature Gran # (Auto) 0.03 (0.00-0.03) x10^3u/L Absolute Lymphs (auto) 2.31 (1.0-4.6) x10^3/uL Absolute Monos (auto) 0.70 (0.0-1.3) x10^3/uL Absolute Nucleated RBC 0.00 (0.00-0.01) x10^3u/L Lymphocytes % 26.5 (24.0-44.0) % Monocytes % 8.0 (0.0-12.0) % Eosinophils % 2.3 (0.00-5.0) % Basophils % 0.5 (0.0-0.4) % Absolute Granulocytes 5.43 (1.4-6.9) x10^3/uL Basophils # 0.04 (0-0.4) x10^3/uL Sodium 137 (137-145) mmol/L Potassium 3.8 (3.5-5.1) mmol/L Chloride 102 (98-107) mmol/L Carbon Dioxide 22 (22-30) mmol/L Anion Gap 16.1 H (5-15) MEQ/L BUN 18 H (7-17) mg/dL Creatinine 0.88 (0.52-1.04) mg/dL Estimated GFR > 60.0 ML/MIN Glucose 130 H (74-106) mg/dL Calcium 9.8 (8.4-10.2) mg/dL Total Bilirubin 0.50 (0.2-1.3) mg/dL AST 33 (14-36) U/L ALT 24 (0-35) U/L Alkaline Phosphatase 84 (38-126) U/L Troponin I < 0.012 (0.000-0.034) ng/mL Serum Total Protein 7.8 (6.3-8.2) g/dL Albumin 4.3 (3.5-5.0) g/dL Lipase 176 (23-300) U/L - Progress Progress: improved Progress Note: Patient is a 67-year-old female presents to our [facility] department for evaluation of abdominal pain. Patient has some epigastric tenderness. Physical exam otherwise negative. CT abdomen pelvis reveals a hiatal hernia and diverticulosis. No acute findings. CBC CMP negative. Lipase negative. Troponin negative. Patient received normal saline and Toradol. Patient resting comfortably. Patient advised that she may benefit from a scope. Patient's granddaughter is at the bedside. Patient's granddaughter states patient tends to worry excessively and believes that she may have a stomach ulcer. Patient denies hematemesis. Patient did states she vomited and her vomitus appeared somewhat darker than what would be expected. Patient advised to follow-up with her primary care doctor. Patient states she will do so. Patient advised that she may benefit from a scope. Granddaughter bedside. Patient and granddaughter agree to follow-up with primary care doctor to arrange for an outpatient EGD. Patient resting comfortably. She voices no other complaints at this time. Will discharge home. Portions of this note were created with voice recognition technology. There may be grammatical, spelling, punctuation or sound alike errors Complexity of problems addressed is moderate acute complicated Complexity of data reviewed and analyzed is moderate. Test ordered. Test revie wed. Clinical correlation made between findings and history and physical exam. Risk of complication and or risk morbidity/mortality of patient management is moderate. A prescription for pantoprazole forwarded to patient's pharmacy. No social determinants of health present to impede follow-up. Plan of care established for shared decision making. Time of discharge patient approximately 15 minutes. Vital stable. Patient voices no other complaints or concerns at this time. Portions of this note were created with voice recognition technology. There may be grammatical, spelling, punctuation or sound alike errors 01/26/23 20:25 Counseled pt/family regarding: lab results, diagnosis, need for follow-up, rad results - Departure Departure Disposition: Home Clinical Impression: Abdominal pain, Hiatal hernia, Sigmoid diverticulosis Condition: Stable Critical Care Time: No Referrals: ANGELIKA WISE MD [Primary Care Provider] - Follow up/PCP as directed Additional Instructions: Discharge/Care Plan MADISHERIE LANTIGUA was seen on 01/26/23 in the Emergency Room. The patient was counseled regarding Diagnosis,Lab results, Imaging studies, need for follow up and when to return to the Emergency Room. Prescriptions given: Discharge Note I have spoken with the patient and/or caregivers. I have explained the patient's condition, diagnosis and treatment plan based on the information available to me at this time. I have answered the patient's and/or caregiver's questions and addressed any concerns. The patient and/or caregivers have as good understanding of the patient's diagnosis, condition and treatment plan as can be expected at this point. The vital signs have been stable. The patient's condition is stable and appropriate for discharge from the emergency department. The patient will pursue further outpatient evaluation with the primary care physician or other designated or consulting physician as outlined in the discharge instructions. The patient and/or caregivers are agreeable to this plan of care and follow-up instructions have been explained in detail. The patient and/or caregivers have received these instruction. The patient/and or caregivers are aware that any significant change in condition or worsening of symptoms should prompt an immediate return to this or the closest emergency department or call 911. Prescriptions: PANTOPRAZOLE 40 mg Tablet [Protonix 40MG Tablet] 40 mg PO DAILY 14 Days #14 tab
[2023-01-26 18:31] LABS: Absolute Neutrophil Ct (ANC) 5.43 x10^3/uL (1.4-6.9); BASOPHIL % 0.5 % (0.0-0.4); Basophil (Absolute #) 0.04 x10^3/uL (0-0.4); Eosinophil % 2.3 % (0.00-5.0); Hematocrit 40.3 % (35-47); Hemoglobin 13.5 g/dL (12.0-16.0); IMMATURE GRAN # 0.03 x10^3u/L (0.00-0.03); IMMATURE GRAN % 0.3 % (0.00-0.4); Lymphocyte (Absolute #) 2.31 x10^3/uL (1.0-4.6); Lymphocytes % 26.5 % (24.0-44.0); Mean Cell Volume 93.7 fL (78-100); Mean Corpuscular Hemoglobin 31.4 pg (26-32); Mean Corpuscular Hgb Concent. 33.5 g/dL (32-36); Mean Platelet Volume 8.9 fL (7.5-11.0); Neutrophil % 62.4 % (36.0-66.0); Platelet Count 334 x10^3/uL (150-450); Red Cell Distribution Width 11.9 % (11.5-14.0); White Blood Count 8.7 x10^3/uL (4.0-10.5)
[2023-01-26 18:46] LABS: ALBUMIN 4.3 g/dL (3.5-5.0); ALKALINE PHOSPHATASE 84 U/L (38-126); ANION GAP 16.1 MEQ/L (5-15); BLOOD UREA NITROGEN 18 mg/dL (7-17); CHLORIDE 102 mmol/L (98-107); Calcium 9.8 mg/dL (8.4-10.2); Carbon Dioxide 22 mmol/L (22-30); Creatinine 1 0.88 mg/dL (0.52-1.04); EST GLOMERULAR FILTRATION RATE > 60.0 ML/MIN; Glucose 130 mg/dL (74-106); LIPASE 176 U/L (23-300); Potassium 3.8 mmol/L (3.5-5.1); SGOT/AST 33 U/L (14-36); SGPT/ALT 24 U/L (0-35); SODIUM 137 mmol/L (137-145); Total Protein 7.8 g/dL (6.3-8.2)
[2023-01-26] MEDS ORDERED: TORAdol 30 mg Injection ONE (20:32)
[2023-01-26 20:33] LABS: Appearance Clear (Clear); Bacteria None Seen /HPF (None Seen); Bilirubin Negative (Negative); Blood Negative (Negative); Epithelial Cells None Seen /HPF (None Seen); Glucose, Urine Negative (Negative); Hyaline Casts NONE SEEN /LPF (0-2); Ketones Negative (Negative); Leukocyte Esterase Negative (Negative); Nitrite Negative (Negative); Ph 6.5 (4.6-8.0); Protein,Urine Dip Negative (Negative); RBC 0-2 /HPF (0-5); Specific Gravity >=1.030 (1.005-1.030); Urobilinogen 0.2 mg/dL (0.2); WBC 0-2 /HPF (0-5)
[2023-01-26] MEDS: TORAdol 30 mg Injection IV ONE (20:34)
[2023-01-26 20:35] LABS: ADD URINE CULTURE? NO (NO)
--- NOTE | 2023-01-27 08:42 | XRAY ---
Indication: Abdomen pain. Multiple contiguous axial images obtained through the abdomen and pelvis using 80 cc Isovue 370 contrast. Comparison: November 26, 2022 Lung bases again demonstrates minimal right base fibrosis/scarring. No infiltrate or effusion. Heart not enlarged. Stable moderate size hiatal hernia with partial intrathoracic stomach. Stomach distended with food/fluid. Noncontrasted stomach and bowel loops appear nonobstructed. Appendix not visualized. Again scattered sigmoid diverticulosis without diverticulitis, cholecystectomy, and hysterectomy. No free fluid/air. Remaining liver, pancreas, spleen, adrenal glands, kidneys, ureters, and bladder are unremarkable. Stable mild aortoiliac calcifications. No AAA or pathologic retroperitoneal lymphadenopathy. Osseous structures intact again with minimal degenerative changes throughout the spine and minimal levoscoliosis. No ventral or inguinal hernias. Impression: 1. Again chronic findings including right lung base fibrosis/scarring, hiatal hernia with partial intrathoracic stomach, sigmoid diverticulosis, arteriosclerotic disease, and chronic bony findings. 2. Remaining CT abdomen/pelvis with contrast exam continues to be negative.
== END 2023-01-26 20:47 | disposition home or self-care (01) ==
LOC: ED 18:05
DX: K44.9 Diaphragmatic hernia without obstruction or gangrene (principal); K57.30 Diverticulosis of large intestine without perforation or abscess without bleeding; R10.84 Generalized abdominal pain; R11.10 Vomiting, unspecified; I10 Essential (primary) hypertension; Z79.899 Other long term (current) drug therapy; Z28.310 Unvaccinated for COVID-19
CPT/HCPCS: 36000; 36415; 74177; 80053; 81001; 83690; 84484; 85025; 96374; 99284; J1885

== ENCOUNTER 2024-07-17 21:05 | Observation (INO) | payer OTHER ==
--- NOTE | 2024-07-17 21:40 | ERPHSYRPT ---
- History of Present Illness Time Seen by Provider: 07/17/24 22:14 Source: patient Exam Limitations: no limitations Patient Subjective Stated Complaint: "IM SO DIZZY, IT STARTED THIS AFTERNOON, SO I SLEPT A LOT. I WAS STANDING AT THE COUNTER AND I PASSED OUT AND HIT MY HEAD. I DON'T KNOW HOW LONG I WAS OUT, MY DAUGHTER FOUND ME. NOW MY HEAD HURTS WHERE I HIT IT AND IM STILL DIZZY" Triage Nursing Assessment: PT. ARRIVES VIA EMS, A&OX3, TRANSFERED TO BED FROM COT WITH STANDBY ASSIST OF 1. SKIN P/W/D, RESP. 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 ABLE TO MOVE ALL FOUR EXT. AND OVERCOME GRAVITY. 3 CM LAC TO LEFT SIDE OF HEAD, BLEEDING CONTROLLED. PUPILS EQUAL AND REACTIVE. Physician History: 69-year-old female presents to our emergency department for evaluation status post syncope and collapse. Patient was at home. Patient reports that she has been feeling dizzy all afternoon. Patient was in her kitchen. Patient states she began to feel dizzy and apparently passed out. Patient was found on the floor by her daughter. Patient has a 3 cm laceration to posterior scalp. Patient complains of a headache. No neck pain. Cervical spine cleared clinically. Patient denies chest pain. No shortness of breath. No nausea vomiting or diaphoresis. Patient has no other complaints. Patient denies a history of the same. She voices no other complaints or concerns at this time. Portions of this note were created with voice recognition technology. There may be grammatical, spelling, punctuation or sound alike errors Timing/Duration: today Severity: moderate Modifying Factors: Improves With: nothing Associated Symptoms: denies symptoms Allergies/Adverse Reactions: hydrocodone bitartrate [From [place]] Allergy (Mild, Verified 01/25/23 14:50) Rash Sulfa (Sulfonamide Antibiotics) [Sulfa(Sulfonamide Antibiotics)] Allergy (Mild, Verified 01/25/23 14:50) patient unsure as to reaction escitalopram oxalate [From Lexapro] Allergy (Unknown, Verified 01/25/23 14:50) Home Medications: Topiramate [Topamax] See Rx Instructions .ROUTE .COMPLEX 11/03/11 [History] Venlafaxine HCl [Effexor] 150 mg PO DAILY 11/03/11 [History] Amlodipine Besylate 5 mg [Norvasc 5 mg] 5 mg PO DAILY 03/12/14 [History] Metoprolol Tartrate 25 mg [Lopressor 25MG Tab] 12.5 mg PO BID 03/12/14 [History] Simvastatin 40 mg [Zocor 40 mg] 40 mg PO DAILY 08/17/16 [History] Levocetirizine Dihydrochloride 5 mg PO DAILY 11/26/22 [History] Eslicarbazepine Acetate [Aptiom] 800 mg PO DAILY 07/17/24 [History] Hx Tetanus, Diphtheria Vaccination/Date Given: No Hx Influenza Vaccination/Date Given: Yes Hx Pneumococcal Vaccination/Date Given: No Immunizations Up to Date: No Travel Risk - International Travel Have you traveled outside of the country in past 3 weeks: No - Emerging Infectious Disease Are you exhibiting symptoms associated with any current EIDs: No - Review of Systems Constitutional: No Symptoms, No Fever, No Chills Eyes: No Symptoms Ears, Nose, & Throat: No Symptoms Respiratory: No Symptoms, No Cough, No Dyspnea Cardiac: No Symptoms, No Chest Pain, No Edema, No Syncope Abdominal/Gastrointestinal: No Symptoms, No Abdominal Pain, No Nausea, No Vomiting, No Diarrhea Genitourinary Symptoms: No Symptoms, No Dysuria Musculoskeletal: No Symptoms, No Back Pain, No Neck Pain Skin: No Symptoms, No Rash Neurological: No Symptoms, No Dizziness, No Focal Weakness, No Sensory Changes Psychological: No Symptoms Endocrine: No Symptoms Hematologic/Lymphatic: No Symptoms Immunological/Allergic: No Symptoms All Other Systems: Reviewed and Negative - Past Medical History Pertinent Past Medical History: Yes Neurological History: Epilepsy, Migraines, Seizures ENT History: No Pertinent History Cardiac History: Hypertension, Other Respiratory History: Asthma Endocrine Medical History: No Pertinent History Musculoskeletal History: No Pertinent History GI Medical History: GERD, Gallbladder Disease, Hemorrhoids History: No Pertinent History Psycho-Social History: Depression Female Reproductive Disorders: No Pertinent History Other Medical History: 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 post shoulder surgery,mitral valve prolapse - Past Surgical History Past Surgical History: Yes Neuro Surgical History: No Pertinent History Cardiac: No Pertinent History Respiratory: No Pertinent History Gastrointestinal: Cholecystectomy Genitourinary: No Pertinent History Musculoskeletal: Orthopedic Surgery Female Surgical History: Hysterectomy Other Surgical History: lt knee and lt shoulder - Social History Smoking Status: Never smoker Exposure to second hand smoke: No Drug Use: none Patient Lives Alone: No - Social Determinants of Health Will the patient participate in the screening: Declined to provide - Nursing Vital Signs Nursing Vital Signs: Initial Vital Signs Temperature 97.2 F 07/17/24 21:12 Pulse Rate 72 07/17/24 21:12 Respiratory Rate 18 07/17/24 21:12 Blood Pressure 137/70 07/17/24 21:12 O2 Sat by Pulse Oximetry 96 07/17/24 21:12 Pain Scale Pain Intensity 7 - Physical Exam General Appearance: no apparent distress, alert, other (3 cm posterior scalp laceration) Eye Exam: PERRL/EOMI, eyes nml inspection Ears, Nose, Throat Exam: normal ENT inspection, moist mucous membranes Neck Exam: normal inspection, non-tender, supple, full range of motion Respiratory Exam: normal breath sounds, lungs clear, airway intact, No respiratory distress Cardiovascular Exam: regular rate/rhythm, normal heart sounds, normal peripheral pulses Gastrointestinal/Abdomen Exam: soft, normal bowel sounds, No tenderness, No mass Back Exam: normal inspection, normal range of motion, No CVA tenderness, No vertebral tenderness Extremity Exam: normal inspection, normal range of motion, pelvis stable Neurologic Exam: alert, oriented x 3, cooperative, normal mood/affect, sensation nml, No motor deficits Skin Exam: normal color, warm, dry, No rash Lymphatic Exam: No adenopathy SpO2 Interpretation: normal SpO2: 96 O2 Delivery: Room Air Procedures - Laceration/Wound Repair Posterior Parietal Time of Procedure: 22:50 Wound Location: head Wound Length (cm): 3 Wound's Depth, Shape: superficial Wound Explored: clean Irrigated: Yes Hibiclens Prep: Yes Wound Debrided: No debridement indicated Wound Repaired With: [place] Number of Sutures: 6 Splint Applied?: No Progress: 07/17/24 23:36 Patient tolerated procedure well. No intra or postprocedural complications. Patient elected to have the procedure done without local anesthesia as the local anesthesia. 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 Care 07/17/24 21:42 Active EKG-ER Only STAT Care 07/17/24 21:42 Active IV Insertion STAT Care 07/17/24 21:42 Active Pulse Oximetry (ED) STAT Care 07/17/24 21:42 Active HEAD WITHOUT CONTRAST [CT] Stat Exams 07/17/24 21:49 Completed BLOOD CULTURE Stat Lab 07/18/24 00:03 Ordered CBC W DIFF Stat Lab 07/17/24 21:30 Completed CMP Stat Lab 07/17/24 21:30 Completed TROPONIN Q4H Lab 07/17/24 21:30 Completed TROPONIN Q4H Lab 07/18/24 01:45 Ordered TROPONIN Q4H Lab 07/18/24 05:45 Ordered UA W/RFX UR CULTURE Stat Lab 07/18/24 00:03 Ordered Transfer Order Routine Transfer 07/18/24 Ordered Medication Summary Generic Name Dose Route Start Last Admin Trade Name Seymourq PRN Reason Stop Dose Admin Sodium Chloride 1,000 mls @ 250 mls/hr 07/17/24 23:30 07/17/24 23:46 Sodium Chloride 0.9% 1000 Ml IV 08/16/24 23:29 250 mls/hr .Q4H ARLET Administration Ceftriaxone Sodium 1 gm in 100 mls @ 200 mls/hr 07/18/24 00:03 Rocephin 1 Gm / 100 Ml Nacl IV 07/18/24 00:32 STAT ONE Lab/Rad Data: Laboratory Result Diagrams 07/17/24 21:30 07/17/24 21:30 Laboratory Results 07/17/24 07/17/24 07/17/24 Range/Units 21:30 21:30 21:30 WBC 19.3 H (3.98-10.04) x10^3/uL RBC 4.31 (3.93-5.22) x10^6/uL Hgb 13.4 (11.2-15.7) g/dL Hct 38.9 (34.1-44.9) % MCV 90.3 (79.4-94.8) fL MCH 31.1 (25.6-32.2) pg MCHC 34.4 (32.2-35.5) g/dL RDW 12.4 (11.7-14.4) % Plt Count 338 (182-369) x10^3/uL MPV 8.8 L (9.4-12.3) fL Gran % 86.5 H (34.0-71.1) % Immature Gran % (Auto) 0.5 H (0.001-0.429) % Nucleat RBC Rel Count 0.0 (0.00-0.2) % Eos # (Auto) 0.08 (0.04-0.36) x10^3/uL Immature Gran # (Auto) 0.10 H (0.001-0.031) x10^3u/L Absolute Lymphs (auto) 1.37 (1.18-3.74) x10^3/uL Absolute Monos (auto) 1.01 H (0.24-0.86) x10^3/uL Absolute Nucleated RBC 0.00 (0.00-0.012) x10^3u/L Lymphocytes % 7.1 L (19.3-51.7) % Monocytes % 5.2 (4.7-12.5) % Eosinophils % 0.4 L (0.7-5.8) % Basophils % 0.3 (0.1-1.2) % Absolute Granulocytes 16.72 H (1.56-6.13) x10^3/uL Basophils # 0.05 (0.01-0.08) x10^3/uL Sodium 130 L (135-145) mmol/L Potassium 4.2 (3.5-5.1) mmol/L Chloride 101 (98-107) mmol/L Carbon Dioxide 19 L (22-30) mmol/L Anion Gap 13.9 (5-15) MEQ/L BUN 15 (7-17) mg/dL Creatinine 1.15 H (0.52-1.04) mg/dL Estimated GFR 52.2 ML/MIN Glucose 126 H (74-106) mg/dL Calcium 9.0 (8.4-10.2) mg/dL Total Bilirubin 0.50 (0.2-1.3) mg/dL AST 32 (14-36) U/L ALT 28 (0-35) U/L Alkaline Phosphatase 117 (38-126) U/L Troponin I < 0.012 (0.000-0.033) ng/mL Serum Total Protein 6.9 (6.3-8.2) g/dL Albumin 3.9 (3.5-5.0) g/dL - Progress Progress: improved Progress Note: 69-year-old female presents to emergency department for evaluation status post syncope and collapse. Physical exam significant for orthostatic hypotension. Otherwise no focal or lateralizing symptomology. CT head negative for acute intracranial pathology. Scalp laceration repaired using 6 tatyana. Workup reveals hyponatremia as well as a leukocytosis and acute renal injury.. The source of the leukocytosis is unclear. Blood cultures obtained. Empiric antibiotics infused. Patient continues to complain of dizziness. Teleneuro consulted. Patient will be admitted for further evaluation including EEG. Plan of care discussed with patient. She agrees to admission at [facility] for further evaluation and treatment. Portions of this note were created with voice recognition technology. There may be grammatical, spelling, punctuation or sound alike errors Complexity of problem addressed is moderate acute complicated. No critical care time. Complex of data reviewed and analyzed is extensive. Test ordered chest reviewed results analyzed and correlated clinically with history and physical exam. Risk of complication and or risk of morbidity/mortality of patient management is high. Patient requires hospitalization for further evaluation and treatment. Vital stable. Time spent to admit patient is approximately 20 minutes. Plan of care established for shared decision making. No social determinants of health present to impede follow-up. Portions of this note were created with voice recognition technology. There may be grammatical, spelling, punctuation or sound alike errors 07/18/24 00:27 Counseled pt/family regarding: lab results, diagnosis, rad results - Departure Departure Disposition: Observation Clinical Impression: Syncope and collapse, Scalp laceration, Orthostatic hypotension, Leukocytosis, Hyponatremia, Acute renal injury, Dizzy Condition: Stable Critical Care Time: No Referrals: ANGELIKA WISE MD [Primary Care Provider] - Follow up/PCP as directed
[2024-07-17 21:47] LABS: Absolute Neutrophil Ct (ANC) 16.72 x10^3/uL (1.56-6.13); BASOPHIL % 0.3 % (0.1-1.2); Basophil (Absolute #) 0.05 x10^3/uL (0.01-0.08); Eosinophil % 0.4 % (0.7-5.8); Eosinophil (Absolute #) 0.08 x10^3/uL (0.04-0.36); Hematocrit 38.9 % (34.1-44.9); Hemoglobin 13.4 g/dL (11.2-15.7); IMMATURE GRAN % 0.5 % (0.001-0.429); Lymphocyte (Absolute #) 1.37 x10^3/uL (1.18-3.74); Lymphocytes % 7.1 % (19.3-51.7); Mean Cell Volume 90.3 fL (79.4-94.8); Mean Corpuscular Hemoglobin 31.1 pg (25.6-32.2); Mean Corpuscular Hgb Concent. 34.4 g/dL (32.2-35.5); Mean Platelet Volume 8.8 fL (9.4-12.3); Monocyte (Absolute #) 1.01 x10^3/uL (0.24-0.86); Monocytes % 5.2 % (4.7-12.5); Neutrophil % 86.5 % (34.0-71.1); Platelet Count 338 x10^3/uL (182-369); Red Blood Count 4.31 x10^6/uL (3.93-5.22); Red Cell Distribution Width 12.4 % (11.7-14.4); White Blood Count 19.3 x10^3/uL (3.98-10.04)
[2024-07-17 22:18] LABS: ALBUMIN 3.9 g/dL (3.5-5.0); ANION GAP 13.9 MEQ/L (5-15); BILIRUBIN,TOTAL 0.5 mg/dL (0.2-1.3); Creatinine 1 1.15 mg/dL (0.52-1.04); EST GLOMERULAR FILTRATION RATE 52.2 ML/MIN; Potassium 4.2 mmol/L (3.5-5.1); Total Protein 6.9 g/dL (6.3-8.2)
--- NOTE | 2024-07-17 23:19 | XRAY ---
CLINICAL HISTORY: trauma COMPARISON: 01/12/2024 TECHNIQUE: Axial non-contrast CT scan of the brain was performed from the skull base to the high parietal region. One of the following dose reduction techniques were utilized for this exam: Automated exposure control, adjustment of the mA and/or kV according to patient size, use of iterative reconstruction. FINDINGS: Focal extracalvarial soft tissue swelling with few air foci in left posterior parietal region. Brain Parenchyma: No acute intraparenchymal hemorrhage. Minimal chronic microvascular ischemic changes. The hypodense area in the right basal ganglia and the anterior aspect of the internal capsule appear stable since prior examination and likely represent old ischemic changes. Ventricular System: Ventricles are normal in size and configuration. No evidence of hydrocephalus or ventricular enlargement. Subarachnoid Spaces: Normal sulci and cisterns. No evidence of subarachnoid hemorrhage or extra-axial fluid collections. Cerebellum and Brainstem: Normal size and signal. No masses, lesions, or areas of abnormal signal. Orbits: Normal appearance of the globes, optic nerves, and extraocular muscles. No evidence of orbital masses or abnormal signal. Sinuses: Mild mucosal thickening is identified in bilateral maxillary sinuses with mucous retention cysts in the right maxillary sinus. Defects are identified along the medial gan of bilateral maxillary sinuses. Mastoid Air Cells: Clear mastoid air cells. No evidence of mastoiditis. Skull: Normal skull morphology. IMPRESSION: 1. Extracalvarial soft tissue swelling and hematoma with few air foci in left posterior parietal region. New interval finding, secondary to trauma. 2. No calvarial fractures or acute intracranial hemorrhage 3. The hypodense area in the right basal ganglia and the anterior aspect of the internal capsule appear stable since prior examination and likely represent old ischemic changes. 4. Minimal chronic microvascular ischemic changes, interval stable Electronically Signed by: Rohan Hays MD. (07/17/2024 23:16:26 EST)
[2024-07-17] MEDS ORDERED: Sodium Chloride 0.9% 1000 ML 1,000 ML ONE (23:44)
[2024-07-17] MEDS: Sodium Chloride 0.9% 1000 ML 1,000 ML IV SCH (23:46)
--- NOTE | 2024-07-18 00:07 | PCM.CONS ---
History of Present Illness - Neuro Consultation Date of Consultation Date: 07/17/24 ED Arrival Date & Time: 07/17/24 21:05 Patient is a 69 yr. old RH woman who presents to the ED secondary to dizziness which began this PM.... unknown LKW/ syncopal episode... earlier this PM.... around 8PM... she is unable to state if she has had prior syncopal episodes.... She was found to be orthostatic on entry thru ED.... Na+ 130.../ + distant hx of seizures... on TPX BID/ and Aptiom... unclear when last seizure.... no aura... AED levels not obtained prior to 2 way video eval... / NIHSS 0/ CT scan brain - unrevealing of abnormality / no evidence of cerebral ischemia... Case d/w Dr. Brooks... plan admission / further workup of seizures vs. syncope related to orthostatic hypotension. Providers: Attending Provider: ED Provider: HOMA BROOKS Consulting Provider: HOLLIS CARDOZA DO cc:: The requesting physician will be sent a copy of the consult. - Chief Complaint Patient Subjective Stated Complaint: syncope - History of Present Illness HPI: The patient is a 69F Patient is a 69 yr. old RH woman who presents to the ED secondary to dizziness which began this PM.... unknown LKW/ syncopal episode... earlier this PM.... around 8PM... she is unable to state if she has had prior syncopal episodes.... She was found to be orthostatic on entry thru ED.... Na+ 130.../ + distant hx of seizures... on TPX BID/ and Aptiom... unclear when last seizure.... no aura... AED levels not obtained prior to 2 way video eval... / NIHSS 0/ CT scan brain - unrevealing of abnormality / no evidence of cerebral ischemia... Case d/w Dr. Brooks... plan admission / further workup of seizures vs. syncope related to orthostatic hypotension. Known stroke risk factors:: Diabetes, Smoking, CAD, Hypertension, AFib, Prior Stroke/s, Dyslipidemia, CKD with or without HD, Obesity, OSWALDO Review of Systems - Review of Systems Review of Systems (Narrative): Pertinent positive and negative findings as per HPI. All other systems negative. - Past Medical History Past Medical History: Yes Neurological History: Epilepsy, Migraines, Seizures ENT History: No Pertinent History Cardiac History: Hypertension, Other Respiratory History: Asthma Endocrine Medical History: No Pertinent History Musculoskelatal History: No Pertinent History GI Medical History: GERD, Gallbladder Disease, Hemorrhoids History: No Pertinent History Pyscho-Social History: Depression Reproductive Disorders: No Pertinent History Comment: 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 post shoulder surgery,mitral valve prolapse - Past Surgical History Past Surgical History: Yes Neuro Surgical History: No Pertinent History Cardiac History: No Pertinent History Respiratory Surgery: No Pertinent History GI Surgical History: Cholecystectomy Genitourinary Surgical Hx: No Pertinent History Musculskeletal Surgical Hx: Orthopedic Surgery Female Surgical History: Hysterectomy Other Surgical History: lt knee and lt shoulder - Social History Smoking Status: Never smoker Exposure to second hand smoke: No Alcohol: None Drug Use: none - Social Determinants of Health Will the patient participate in the screening: Declined to provide Physical Exam - Vital Signs Vital Signs: Vital Signs - 24 hr 07/17/24 07/17/24 07/17/24 21:12 21:39 21:42 Temperature 97.2 F Pulse Rate 72 72 Respiratory 18 19 Rate Blood Pressure 136/72 Blood Pressure 137/70 [Left Arm] O2 Sat by Pulse 96 96 100 Oximetry 07/17/24 07/17/24 07/17/24 22:00 22:41 22:50 Temperature Pulse Rate 72 75 71 Respiratory 18 13 17 Rate Blood Pressure 123/70 Blood Pressure [Left Arm] O2 Sat by Pulse 95 97 94 L Oximetry 07/17/24 07/17/24 07/17/24 22:59 23:00 23:30 Temperature Pulse Rate 74 74 86 Respiratory 16 20 23 Rate Blood Pressure 124/74 130/61 Blood Pressure [Left Arm] O2 Sat by Pulse 97 97 Oximetry 07/18/24 07/18/24 00:00 00:04 Temperature Pulse Rate 85 Respiratory 13 Rate Blood Pressure 102/79 Blood Pressure [Left Arm] O2 Sat by Pulse 96 Oximetry - Physical Exam Tele-Neuro Physical Exam (Narrative): Neuro exam: NIHSS 0 Patient awake/ alert/ oriented in 4 spheres. Speech is fluent/ naming is intact/ Repetition intact/ no evidence of aphasia noted. No dysarthria noted. 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 (=) 4-2mm bilaterally/ EOMs intact in all directions of gaze/symm etric facial sensation V1-2 -3 bilaterally/ symmetrical facial upper/ lower noted/ audition intact/ tongue midline/ phonation intact/ + gag reflex intact/ SCMs(=) Motor exam- no pronator drift/ 4/5+ bilateral UEs/ LEs proximal to distal Sensory-intact to light touch throughout bilateral UEs/ LEs/ no agraphesthesia/ no astereognosis/ no double simultaneous extinction DTRs- deferred/ no babinski sign illicited Cerebellar- finger to nose/ heel-alston (=)/ no dysmetria noted/ no overshoot nystagmus/ no rebound phenomenon Gait- not tested Fine motor- no resting tremor/ no myoclonus/ no abnormal involuntary movements/ no choreiform movements Gen: No apparent distress, non-toxic appearing Psych: normal affect HEENT: No visible bruising, no mucosal pallor Ophth: No scleral icterus, no conjunctival injection or proptosis Neck: No nuchal rigidity, turns neck without difficulty Resp: normal respirations, no distress, speaking in full sentences CV: No visible edema in LE Abd: No abd distention noted MSK: No joint swelling, erythema noted. No contractures noted. Skin: No pallor. No visible rashes or bruising - Physical Exam General: no acute distress Mental Status: alert Cranial nerves: + Blink, Visual richards are full to finger counting, no extinction to double Motor: antigravity in all 4 ext, no drift noted, normal bulk Sens:: intact to touch in all 4 Movement:: no tremors noted, LEXIS/FTN intact. No ataxia Gait: deferred Results - Labs Lab/Micro Results: Lab Results-Last 24 Hours 07/17/24 07/17/24 07/17/24 Range/Units 21:30 21:30 21:30 WBC 19.3 H (3.98-10.04) x10^3/uL RBC 4.31 (3.93-5.22) x10^6/uL Hgb 13.4 (11.2-15.7) g/dL Hct 38.9 (34.1-44.9) % MCV 90.3 (79.4-94.8) fL MCH 31.1 (25.6-32.2) pg MCHC 34.4 (32.2-35.5) g/dL RDW 12.4 (11.7-14.4) % Plt Count 338 (182-369) x10^3/uL MPV 8.8 L (9.4-12.3) fL Gran % 86.5 H (34.0-71.1) % Immature Gran % (Auto) 0.5 H (0.001-0.429) % Nucleat RBC Rel Count 0.0 (0.00-0.2) % Eos # (Auto) 0.08 (0.04-0.36) x10^3/uL Immature Gran # (Auto) 0.10 H (0.001-0.031) x10^3u/L Absolute Lymphs (auto) 1.37 (1.18-3.74) x10^3/uL Absolute Monos (auto) 1.01 H (0.24-0.86) x10^3/uL Absolute Nucleated RBC 0.00 (0.00-0.012) x10^3u/L Lymphocytes % 7.1 L (19.3-51.7) % Monocytes % 5.2 (4.7-12.5) % Eosinophils % 0.4 L (0.7-5.8) % Basophils % 0.3 (0.1-1.2) % Absolute Granulocytes 16.72 H (1.56-6.13) x10^3/uL Basophils # 0.05 (0.01-0.08) x10^3/uL Sodium 130 L (135-145) mmol/L Potassium 4.2 (3.5-5.1) mmol/L Chloride 101 (98-107) mmol/L Carbon Dioxide 19 L (22-30) mmol/L Anion Gap 13.9 (5-15) MEQ/L BUN 15 (7-17) mg/dL Creatinine 1.15 H (0.52-1.04) mg/dL Estimated GFR 52.2 ML/MIN Glucose 126 H (74-106) mg/dL Calcium 9.0 (8.4-10.2) mg/dL Total Bilirubin 0.50 (0.2-1.3) mg/dL AST 32 (14-36) U/L ALT 28 (0-35) U/L Alkaline Phosphatase 117 (38-126) U/L Troponin I < 0.012 (0.000-0.033) ng/mL Serum Total Protein 6.9 (6.3-8.2) g/dL Albumin 3.9 (3.5-5.0) g/dL Microbiology 07/18/24 00:03 Blood Culture Gram Stain - Final Blood Not Reportable 07/18/24 00:03 Blood Culture Gram Stain - Final Blood Not Reportable - Radiology Orders Radiology Orders: Radiology Procedures Category Date Time Status HEAD WITHOUT CONTRAST [CT] Stat Exams 07/17/24 21:49 Completed Impressions & Recommendations - ED Arrival Time ED Arrival Date & Time: ED Arrival Date and Time 07/17/24 21:05 Last known well time: - NIHSS IV Thrombolysis Standard of Care: IV thrombolysis as a standard of care in acute stroke discussed with HOMA BROOKS. Risk, benefits, and options of IV thrombolytic therapy for acute ischemic stroke were discussed with the patient/family SHERIE BARRAZA. We discussed that use of IV tenecteplase is in line with national stroke guidelines. We discussed that risks of IV thrombolytic use include intracranial hemorrhage, other fatal bleeding risks, and angioedema. Alternatives of treatment, including not proceeding with thrombolytic therapy were discussed. - Recommendations Recommendations: -Neuro checks, NIHSS, vital signs monitoring as per post tenecteplase protocol -Repeat non contrast head CT or noncontrast MRI brain 24 hours after IV thrombolyltic administration. -Obtain STAT non contrast head CT if there are new neurological deficits, worsening of current deficits, or with complaint of severe headache. Notify Neurology SP of changes in neurological exam. -Nicardipine gtt as needed to maintain BP< 180/105 x 24hr post tenecteplase administration. -Monitor for angioedema -SCD's for DVT prophylaxis. Work up: -Basic labs (CBC, BMP, TSH+T4) if not done already. -INR,PTT if not done already -Fasting Lipid Panel and Hgb A1c -Transthroacic echocardiogram [with bubble study] -EKG + Telemetry- monitor for A-FIB Secondary Stroke Prevention -Hold off on antiplatelet therapy x 24 hr post IV thrombolytic therapy Decision to initiate antiplatelet therapy, or anticoagulation if needed, will be based on repeat imaging at 24 hour post thrombolytic administration. -If not medical contraindication, start high intensity statin. Eg. Atrovastatin 80 mg daily Risk Factor Management -HTN control: BP <180/105 for first 24 hr post tenecteplase -If diabetic, optimize glucose control: intermodal dispatcher goal HgA1c <7 -HLD control: Long-term goal LDL <70. High intensity statin recommended. Moderate intensity statin in patients > 75 years. -Smoking Alcohol Use Drug use cessation counseling Stroke Rehabilitation: -Physical therapy, occupational therapy, speech therapy consults -Social work and case management consults for help with discharge needs. Impression and recommendation were discussed with Dr. HOMA BROOKS Thank you for allowing us to participate in this patient's care. Please call [facility] with questions, concerns, or change in patient's neurological status. This consult was performed via secure telemedicine audio/visual platform with [ ] RN assisting at bedside. Patient identity verified and consent obtained. TIQ recieved at [ ] Neuro Cart Time: Delays in Patient Encounter: Assessment & Plan (1) Orthostatic hypotension Current Visit: Yes Status: Acute Code(s): I95.1 - ORTHOSTATIC HYPOTENSION (2) Hyponatremia Current Visit: Yes Status: Acute Code(s): E87.1 - HYPO-OSMOLALITY AND HYPONATREMIA (3) Leukocytosis Current Visit: Yes Status: Acute Code(s): D72.829 - ELEVATED WHITE BLOOD CELL COUNT, UNSPECIFIED (4) Syncope and collapse Current Visit: Yes Status: Acute Code(s): R55 - SYNCOPE AND COLLAPSE - Encounter Encounter: "The entirety of this encounter was performed via Telemedicine using audio and visual "
[2024-07-18] MEDS ORDERED: ROCEPHIN 1 GM / 100 ML NaCl 1 GM/100 ML IVPB IV ONE (00:32)
[2024-07-18] MEDS: ROCEPHIN 1 GM / 100 ML NaCl 1 GM/100 ML IVPB IV ONE (00:33)
[2024-07-18] MEDS ORDERED: TYLENOL 325 MG ONE (00:46)
[2024-07-18] MEDS: TYLENOL 325 MG PO STA (00:47)
[2024-07-18 00:57] LABS: Appearance Cloudy (Clear); Bacteria Many /HPF (None Seen); Bilirubin Negative (Negative); Blood Negative (Negative); Epithelial Cells None Seen /HPF (None Seen); Glucose, Urine Negative (Negative); Ketones Trace (Negative); Leukocyte Esterase Large (Negative); Nitrite Positive (Negative); Ph 6.5 (4.6-8.0); Protein,Urine Dip 30 (Negative); RBC 0-2 /HPF (0-5); WBC >100 /HPF (0-5)
[2024-07-18] MEDS ORDERED: TYLENOL 325 MG PO PRN (02:54)
[2024-07-18] MEDS ORDERED: Zofran 4 MG/2 ML VIAL IV PRN (02:54)
[2024-07-18] MEDS: Sodium Chloride 0.9% 1000 ML 1,000 ML IV SCH (03:12)
--- NOTE | 2024-07-18 03:45 | PCM.HP ---
History of Present Illness - Chief Complaint Chief Complaint: syncope&collapse, scalp laceration, orthostatic hypotension, leukocytosis Date: 07/18/24 History of Present Illness: is a 69 year old female who presented to the emergency department for evaluation after syncope and collapse. Patient was at home and had been feeling dizzy all afternoon. She was in her kitchen and began to feel dizzy and apparently passed out. Patient was found on the floor by her daughter. Patient has a 3 cm laceration to posterior scalp. Patient complains of a headache. She denied neck pain. She also denies chest pain and shortness of breath. In the ED, the patient was noted to have evidence of UTI and was given IV antibiotics. She was evaluated by teleneurology. . - Review of Systems Constitutional: No Symptoms Eyes: No Symptoms Ears, Nose, & Throat: No Symptoms Respiratory: No Symptoms Cardiac: Syncope Abdominal/Gastrointestinal: No Symptoms Genitourinary Symptoms: No Symptoms Musculoskeletal: No Symptoms Skin: Other (scalp laceration) Neurological: Dizziness Psychological: No Symptoms Endocrine: No Symptoms Hematologic/Lymphatic: No Symptoms Immunological/Allergic: No Symptoms All Other Systems: Reviewed and Negative Medications & Allergies Home Medications: Home Medication List Venlafaxine HCl [Effexor] 150 mg PO DAILY 11/03/11 [History Confirmed 07/18/24] Amlodipine Besylate 5 mg [Norvasc 5 mg] 5 mg PO DAILY 03/12/14 [History Confirmed 07/18/24] Metoprolol Tartrate 25 mg [Lopressor 25MG Tab] 25 mg PO BID 03/12/14 [History Confirmed 07/18/24] Simvastatin 40 mg [Zocor 40 mg] 40 mg PO HS 08/17/16 [History Confirmed 07/18/24] Levocetirizine Dihydrochloride 5 mg PO DAILY 11/26/22 [History Confirmed 07/18/24] Eslicarbazepine Acetate [Aptiom] 800 mg PO DAILY 07/17/24 [History Confirmed 07/18/24] Topiramate 100 mg [Topamax 100 MG] 100 mg PO DAILY 07/18/24 [History Confirmed 07/18/24] Topiramate 100 mg [Topamax 100 MG] 200 mg PO HS 07/18/24 [History Confirmed 07/18/24] Allergies/Adverse Reactions: Allergies Allergy/AdvReac Type Severity Reaction Status Date / Time hydrocodone bitartrate Allergy Mild Rash Verified 07/18/24 01:08 [From Reynolds] Sulfa (Sulfonamide Allergy Mild Verified 07/18/24 01:08 Antibiotics) [Sulfa(Sulfonamide Antibiotics)] escitalopram oxalate Allergy Unknown Verified 07/18/24 01:08 [From Lexapro] - Past Medical History Past Medical History: Yes Neurological History: Epilepsy, Migraines, Seizures ENT History: No Pertinent History Cardiac History: Hypertension, Other Respiratory History: Asthma Endocrine Medical History: No Pertinent History Musculoskelatal History: No Pertinent History GI Medical History: GERD, Gallbladder Disease, Hemorrhoids History: No Pertinent History Pyscho-Social History: Depression Reproductive Disorders: No Pertinent History Comment: 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 post shoulder surgery,mitral valve prolapse - Past Surgical History Past Surgical History: Yes Neuro Surgical History: No Pertinent History Cardiac History: No Pertinent History Respiratory Surgery: No Pertinent History GI Surgical History: Cholecystectomy Genitourinary Surgical Hx: No Pertinent History Musculskeletal Surgical Hx: Orthopedic Surgery Female Surgical History: Hysterectomy Other Surgical History: lt knee and lt shoulder Significant Family History: no pertinent family hx Family History: no hereditary neurological disorders. - Social History Smoking Status: Never smoker Exposure to second hand smoke: No Alcohol: None Drug Use: none - Social Determinants of Health Will the patient participate in the screening: Yes Do you worry about a steady place to live?: No Do you have any problems with any of the following?: No known problems In the past 12 months,have you had to go without utilities?: No Have you or anyone in your house had to go without enough: No Transportation Issues: No Has anyone in your support network made you feel unsafe?: No Does the patient want assistance with any of the above?: No Comment: lives at [address] (apartment) in [place] - Physical Exam Vital Signs: Vital Signs - 24 hr Temp Pulse Resp BP BP Pulse Ox 07/18/24 01:21 95 07/18/24 01:00 97.0 F 76 20 137/61 96 07/18/24 00:48 96 07/18/24 00:00 85 13 102/79 07/17/24 23:30 86 23 130/61 07/17/24 23:00 74 20 124/74 97 07/17/24 22:59 74 16 97 07/17/24 22:50 71 17 94 L 07/17/24 22:41 75 13 97 07/17/24 22:00 72 18 123/70 95 07/17/24 21:42 100 07/17/24 21:39 72 19 136/72 96 07/17/24 21:12 97.2 F 72 18 137/70 96 General Appearance: no apparent distress, alert Neurologic Exam: alert, oriented x 3, cooperative, 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 as tested, normal mood/affect, nml cerebellar function Eye Exam: PERRL/EOMI, eyes nml inspection Ears, Nose, Throat Exam: normal ENT inspection Neck Exam: normal inspection, non-tender, supple, full range of motion Respiratory Exam: normal breath sounds, lungs clear Cardiovascular Exam: regular rate/rhythm, normal heart sounds Gastrointestinal/Abdomen Exam: soft, normal bowel sounds Back Exam: normal range of motion Extremity Exam: normal inspection, normal range of motion Skin Exam: normal color, laceration (scalp, s/p stapling) Wound Assessment: Skin/Wound Assessment Wound/Incision Assessment Start: 07/18/24 01:25 Text: Status: Active Freq: Q6H Protocol: Document 07/18/24 01:25 MM (Rec: 07/18/24 01:30 MM [id number]) Wound/Incision Assessment Left Parietal Wound Assessment Admission Wound Type Laceration Drainage Amount None Drainage Odor None/Absent General Appearance Well Approximated,Tatyana Intact,Open to air Comment 6 tatyana to left lateral/ parietal scalp. no drainge present. Wound Photo Photo Taken No Results - Labs Lab/Micro Results: Lab Results-Last 24 Hours 07/17/24 07/17/24 07/17/24 Range/Units 21:30 21:30 21:30 WBC 19.3 H (3.98-10.04) x10^3/uL RBC 4.31 (3.93-5.22) x10^6/uL Hgb 13.4 (11.2-15.7) g/dL Hct 38.9 (34.1-44.9) % MCV 90.3 (79.4-94.8) fL MCH 31.1 (25.6-32.2) pg MCHC 34.4 (32.2-35.5) g/dL RDW 12.4 (11.7-14.4) % Plt Count 338 (182-369) x10^3/uL MPV 8.8 L (9.4-12.3) fL Gran % 86.5 H (34.0-71.1) % Immature Gran % (Auto) 0.5 H (0.001-0.429) % Nucleat RBC Rel Count 0.0 (0.00-0.2) % Eos # (Auto) 0.08 (0.04-0.36) x10^3/uL Immature Gran # (Auto) 0.10 H (0.001-0.031) x10^3u/L Absolute Lymphs (auto) 1.37 (1.18-3.74) x10^3/uL Absolute Monos (auto) 1.01 H (0.24-0.86) x10^3/uL Absolute Nucleated RBC 0.00 (0.00-0.012) x10^3u/L Lymphocytes % 7.1 L (19.3-51.7) % Monocytes % 5.2 (4.7-12.5) % Eosinophils % 0.4 L (0.7-5.8) % Basophils % 0.3 (0.1-1.2) % Absolute Granulocytes 16.72 H (1.56-6.13) x10^3/uL Basophils # 0.05 (0.01-0.08) x10^3/uL Sodium 130 L (135-145) mmol/L Potassium 4.2 (3.5-5.1) mmol/L Chloride 101 (98-107) mmol/L Carbon Dioxide 19 L (22-30) mmol/L Anion Gap 13.9 (5-15) MEQ/L BUN 15 (7-17) mg/dL Creatinine 1.15 H (0.52-1.04) mg/dL Estimated GFR 52.2 ML/MIN Glucose 126 H (74-106) mg/dL Calcium 9.0 (8.4-10.2) mg/dL Total Bilirubin 0.50 (0.2-1.3) mg/dL AST 32 (14-36) U/L ALT 28 (0-35) U/L Alkaline Phosphatase 117 (38-126) U/L Troponin I < 0.012 (0.000-0.033) ng/mL Serum Total Protein 6.9 (6.3-8.2) g/dL Albumin 3.9 (3.5-5.0) g/dL Urine Color (Yellow) Urine Appearance (Clear) Urine pH (4.6-8.0) Ur Specific [place] (1.005-1.030) Urine Protein (Negative) Urine Glucose (UA) (Negative) mg/dL Urine Ketones (Negative) Urine Blood (Negative) Urine Nitrite (Negative) Urine Bilirubin (Negative) Urine Urobilinogen (0.2) mg/dL Ur Leukocyte Esterase (Negative) U Hyaline Cast (Auto) (0-2) /LPF Urine Microscopic RBC (0-5) /HPF Urine Microscopic WBC (0-5) /HPF Ur Epithelial Cells (None Seen) /HPF Urine Bacteria (None Seen) /HPF Urine Culture Reflexed (NO) 07/18/24 07/18/24 Range/Units 00:03 00:20 WBC (3.98-10.04) x10^3/uL RBC (3.93-5.22) x10^6/uL Hgb (11.2-15.7) g/dL Hct (34.1-44.9) % MCV (79.4-94.8) fL MCH (25.6-32.2) pg MCHC (32.2-35.5) g/dL RDW (11.7-14.4) % Plt Count (182-369) x10^3/uL MPV (9.4-12.3) fL Gran % (34.0-71.1) % Immature Gran % (Auto) (0.001-0.429) % Nucleat RBC Rel Count (0.00-0.2) % Eos # (Auto) (0.04-0.36) x10^3/uL Immature Gran # (Auto) (0.001-0.031) x10^3u/L Absolute Lymphs (auto) (1.18-3.74) x10^3/uL Absolute Monos (auto) (0.24-0.86) x10^3/uL Absolute Nucleated RBC (0.00-0.012) x10^3u/L Lymphocytes % (19.3-51.7) % Monocytes % (4.7-12.5) % Eosinophils % (0.7-5.8) % Basophils % (0.1-1.2) % Absolute Granulocytes (1.56-6.13) x10^3/uL Basophils # (0.01-0.08) x10^3/uL Sodium (135-145) mmol/L Potassium (3.5-5.1) mmol/L Chloride (98-107) mmol/L Carbon Dioxide (22-30) mmol/L Anion Gap (5-15) MEQ/L BUN (7-17) mg/dL Creatinine (0.52-1.04) mg/dL Estimated GFR ML/MIN Glucose (74-106) mg/dL Calcium (8.4-10.2) mg/dL Total Bilirubin (0.2-1.3) mg/dL AST (14-36) U/L ALT (0-35) U/L Alkaline Phosphatase (38-126) U/L Troponin I < 0.012 (0.000-0.033) ng/mL Serum Total Protein (6.3-8.2) g/dL Albumin (3.5-5.0) g/dL Urine Color Dark Yellow A (Yellow) Urine Appearance Cloudy A (Clear) Urine pH 6.5 (4.6-8.0) Ur Specific [place] 1.020 (1.005-1.030) Urine Protein 30 (Negative) Urine Glucose (UA) Negative (Negative) mg/dL Urine Ketones Trace A (Negative) Urine Blood Negative (Negative) Urine Nitrite Positive A (Negative) Urine Bilirubin Negative (Negative) Urine Urobilinogen 1.0 A (0.2) mg/dL Ur Leukocyte Esterase Large A (Negative) U Hyaline Cast (Auto) 11-20 (0-2) /LPF Urine Microscopic RBC 0-2 (0-5) /HPF Urine Microscopic WBC >100 A (0-5) /HPF Ur Epithelial Cells None Seen (None Seen) /HPF Urine Bacteria Many A (None Seen) /HPF Urine Culture Reflexed YES (NO) - Radiology Impressions Radiology Exams & Impressions: Radiology Procedures Category Date Time Status HEAD WITHOUT CONTRAST [CT] Stat Exams 07/17/24 21:49 Completed Assessment/Plan (1) UTI (urinary tract infection) Current Visit: Yes Status: Acute Assessment & Plan: Antibiotics. Follow culture results. Code(s): N39.0 - URINARY TRACT INFECTION, SITE NOT SPECIFIED (2) Syncope and collapse Current Visit: Yes Status: Acute Assessment & Plan: Check AM orthostatics. IV fluids. Code(s): R55 - SYNCOPE AND COLLAPSE (3) Scalp laceration Current Visit: Yes Status: Acute Assessment & Plan: wound care. s/p tatyana application. Will need outpatient removal. (4) Orthostatic hypotension Current Visit: Yes Status: Acute Code(s): I95.1 - ORTHOSTATIC HYPOTENSION (5) Leukocytosis Current Visit: Yes Status: Acute Assessment & Plan: Check AM orthostatics. Code(s): D72.829 - ELEVATED WHITE BLOOD CELL COUNT, UNSPECIFIED Telemedicine Encounter - Telemedicine Encounter Telemedicine Encounter: "The entirety of this encounter was performed via Telemedicine" This visit was performed using real-time audio and video connection between my location and thepatients locationwith the assistance of a surrogateat the patients location. Written or verbal consent was obtained from the patient/guardian to perform this visit usinghospital for special caremedicine technology. Any patient questions regarding the telemedicine interaction were a nswered.
[2024-07-18 05:28] LABS: BASOPHIL % 0.2 % (0.1-1.2); Basophil (Absolute #) 0.03 x10^3/uL (0.01-0.08); Eosinophil % 0.8 % (0.7-5.8); Eosinophil (Absolute #) 0.11 x10^3/uL (0.04-0.36); Hematocrit 36.2 % (34.1-44.9); Hemoglobin 12.3 g/dL (11.2-15.7); IMMATURE GRAN # 0.05 x10^3u/L (0.001-0.031); IMMATURE GRAN % 0.4 % (0.001-0.429); Lymphocyte (Absolute #) 1.98 x10^3/uL (1.18-3.74); Lymphocytes % 14.6 % (19.3-51.7); Mean Corpuscular Hemoglobin 30.6 pg (25.6-32.2); Mean Platelet Volume 8.9 fL (9.4-12.3); Monocytes % 5.9 % (4.7-12.5); Neutrophil % 78.1 % (34.0-71.1); Platelet Count 300 x10^3/uL (182-369); Red Blood Count 4.02 x10^6/uL (3.93-5.22); Red Cell Distribution Width 12.4 % (11.7-14.4); White Blood Count 13.6 x10^3/uL (3.98-10.04)
[2024-07-18 06:19] LABS: ANION GAP 12.2 MEQ/L (5-15); Creatinine 1 0.83 mg/dL (0.52-1.04); EST GLOMERULAR FILTRATION RATE 77.2 ML/MIN; Potassium 3.5 mmol/L (3.5-5.1)
[2024-07-18] MEDS ORDERED: MEDICATION INTERVENTION MC SCH ×2 (07:15)
[2024-07-18] MEDS: NORVASC 5 MG PO SCH (09:31)
[2024-07-18] MEDS: TOPIRAMATE PO SCH ×2 (09:31→19:59)
[2024-07-18] MEDS: Acidophilus TABLET PO SCH (09:31)
[2024-07-18] MEDS: CLARITIN 10 MG PO SCH (09:32)
[2024-07-18] MEDS: Lopressor 25MG Tab PO SCH (09:32)
[2024-07-18] MEDS: SODIUM BICARBONATE PO SCH (09:32)
[2024-07-18] MEDS: Effexor XR 75 MG PO SCH (09:32)
--- NOTE | 2024-07-18 09:56 | PCM.CONS ---
History of Present Illness - Reason for Consult Chief Complaint: syncope&collapse, scalp laceration, orthostatic hypotension, leukocytosis Date of Consultation Date: 07/18/24 Reason for Consult: Syncope and abnormal brain imaging Requesting Provider: ARIELLA FALLON MD Consulting Provider: JOSE F HEAD MD History of Present Illness: Reason for Consultation: Syncope and abnormal CTH Chief complaint: I passed out Time called: 907 Patient seen: 909 HPI: This is a right-handed 69 year old white female with PMH of epilepsy, mitral valve prolapse, anxiety, hypertension who came to the hospital after patient had a syncopal spell yesterday at home. According to patient, at around 8:00 PM yesterday, she passed out. She did not get any warning sign. Does not believe she had a seizure. She was out for a few minutes according to her. She lives all by herself. She does not know much about detailed history. She was found to have a UTI and when I asked about urinary complaints, she did mention about cloudy urine and urine was dark period she's getting treated with antibiotics for UTI. CT scan of the head was obtained which showed no acute process. It did show scalp hematoma and swelling and radiologist also mentioned about tiny foci of air in the left parietal lobe. I tried to look at the images but I could not appreciate those findings of air in the left parietal region. 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 She tells me that she has a diagnosed epilepsy ever since she had a grand Mal seizure in 1988. She did not have any further grand Mal episodes. She does tell me that she will also have a staring off spells and she's unsure how often that happens. Roughly she tells me once a month she's currently on aptiom and topamax for seizure medication. She has not seen neurologist for a long time. Vitals temperature 97.1 pulse 69 respiratory rate of 20 blood pressure 116 / 61 White count was initially 19.3 which improved to 13.6 this morning. Hemoglobin 12.3 hematocrit 36.2 platelet count of 300 sodium 133 potassium 3.5 chloride 107 bicarb 17 BUN 14 creatinine .83 Urine analysis showed cloudy urine with positive nitrite and noise leukocytes estrace with greater than 100 WBCs. Medical history: see above Surgical history: shoulder surgery, cholecystectomy Family history: no significant Social history: no smoking or alcohol or illicit drug REVIEW OF SYSTEMS: 12-point review of system is negative unless otherwise mentioned in the HPI VITALS Vitals reviewed from today Physical Exam: Constitutional: Gen: NAD, pleasant, well nourished HEENT: NC/AT ALEC Neurologic Exam: Higher Functions: AA&Ox3; Tracks; Regards Follows simple and complex commands Communicates appropriately Memory is intact Concentration is normal Fund of Knowledge is appropriate. Language : Comprehension is intact; no aphasia; no dysarthria; CN II : Visual richards are full; Pupils constrict from 4mm to 2mm under bright light, are equal, round, and react briskly. CN III, IV, : EOMI; CN V : Facial sensation is full and symmetric CN VII : Facial movement is full and symmetric CN VIII : hearing intact BL CN IX, X : Palatal Elevation is symmetric CN XI : SCM 5/5 BL CN XII : Tongue protrudes midline without fasciculations Sensory : intact to soft touch Motor : Strength 5/5 UE and LE BL Deep tendon reflexes : MACARIO Plantar response : MACARIO [id number] : normal BL, no dysmetria Abnormal Movements : none seen Gait and Station : deferred Imaging CTH IMPRESSION: 1. Extracalvarial soft tissue swelling and hematoma with few air foci in left posterior parietal region. New interval finding, secondary to trauma. 2. No calvarial fractures or acute intracranial hemorrhage 3. The hypodense area in the right basal ganglia and the anterior aspect of the internal capsule appear stable since prior examination and likely represent old ischemic changes. 4. Minimal chronic microvascular ischemic changes, interval stable Assessment: 69 year old white female presented to the hospital with syncopal episode. 1-Syncope/UTI: Patient presented with passing out episode yesterday. She was found to have urinary tract infection and is on antibiotic. She did have the symptoms of UTI. She was also found to be positive for orthostatic. 2-Epilepsy: Per patient, she was diagnosed with epilepsy in 1988 after she had a grand Mal seizure. Patient is currently on Aptiorm and Topamax. Sodium is 133 and yesterday it was 130. Likely this is secondary to being on Aptiom. Patient has not seen a neurologist in a long time. Patient doesn't believe she had a seizure yesterday. 3-Hyponatremia: this is likely secondary to being on Aptiom 4-Abnormal CTH: Patient got a cat scan which showed soft tissue swelling as well as finding of foci of air in the left parietal region. I tried to look at the images but I could not find pneumocephalus (air) -probably it is tiny and I'm unable to see. No skull fracture otherwise. typically pneumocephalus or air in the skull cavity is usually seen secondary to skull fracture but patient does not have such a finding or break in the continuity of CSF Plan: We'll get MRI of the brain. EEG. Treatment of underlying uh UTI. Communicated plan with the ER and RN Neurology will follow up. Patient to follow up with outpatient neurologist for management of ASMs. Seizure precautions explained. Thank you for allowing us to participate in this patients care. Please call [facility] with questions, concerns, or change in patients neurological status. This consult was performed via secure telemedicine 2 way audio/visual platform, patient consent obtained. Medications & Allergies Home Medications: Home Medication List Amlodipine Besylate 5 mg [Norvasc 5 mg] 5 mg PO DAILY 03/12/14 [History Confirmed 07/18/24] Metoprolol Tartrate 25 mg [Lopressor 25MG Tab] 25 mg PO BID 03/12/14 [History Confirmed 07/18/24] Simvastatin 40 mg [Zocor 40 mg] 40 mg PO HS 08/17/16 [History Confirmed 07/18/24] Levocetirizine Dihydrochloride 5 mg PO DAILY 11/26/22 [History Confirmed 07/18/24] Eslicarbazepine Acetate [Aptiom] 800 mg PO DAILY 07/17/24 [History Confirmed 07/18/24] Topiramate 100 mg [Topamax 100 MG] 100 mg PO DAILY 07/18/24 [History Confirmed 07/18/24] Topiramate 100 mg [Topamax 100 MG] 200 mg PO HS 07/18/24 [History Confirmed 07/18/24] Venlafaxine HCl ER 75 mg [Effexor XR 75 MG] 150 mg PO DAILY 07/18/24 [History Confirmed 07/18/24] Allergies/Adverse Reactions: Allergies Allergy/AdvReac Type Severity Reaction Status Date / Time hydrocodone bitartrate Allergy Mild Rash Verified 07/18/24 01:08 [From [place]] Sulfa (Sulfonamide Allergy Mild Verified 07/18/24 01:08 Antibiotics) [Sulfa(Sulfonamide Antibiotics)] escitalopram oxalate Allergy Unknown Verified 07/18/24 01:08 [From Lexapro] - Past Medical History Past Medical History: Yes Neurological History: Epilepsy, Migraines, Seizures ENT History: No Pertinent History Cardiac History: Hypertension, Other Respiratory History: Asthma Endocrine Medical History: No Pertinent History Musculoskelatal History: No Pertinent History GI Medical History: GERD, Gallbladder Disease, Hemorrhoids History: No Pertinent History Pyscho-Social History: Depression Reproductive Disorders: No Pertinent History Comment: 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 post shoulder surgery,mitral valve prolapse - Past Surgical History Past Surgical History: Yes Neuro Surgical History: No Pertinent History Cardiac History: No Pertinent History Respiratory Surgery: No Pertinent History GI Surgical History: Cholecystectomy Genitourinary Surgical Hx: No Pertinent History Musculskeletal Surgical Hx: Orthopedic Surgery Female Surgical History: Hysterectomy Other Surgical History: lt knee and lt shoulder Significant Family History: no pertinent family hx - Social History Smoking Status: Never smoker Exposure to second hand smoke: No Alcohol: None Drug Use: none - Social Determinants of Health Will the patient participate in the screening: Yes Do you worry about a steady place to live?: No Do you have any problems with any of the following?: No known problems In the past 12 months,have you had to go without utilities?: No Have you or anyone in your house had to go without enough: No Transportation Issues: No Has anyone in your support network made you feel unsafe?: No Does the patient want assistance with any of the above?: No Comment: lives at [address] (apartment) in [place] - Physical Exam Vital Signs: Vital Signs - 24 hr Temp Pulse Resp BP BP Pulse Ox 07/18/24 08:00 97.1 F 69 20 116/61 95 07/18/24 04:00 20 07/18/24 01:21 95 07/18/24 01:00 97.0 F 76 20 137/61 96 07/18/24 00:48 96 07/18/24 00:00 85 13 102/79 07/17/24 23:30 86 23 130/61 07/17/24 23:00 74 20 124/74 97 07/17/24 22:59 74 16 97 07/17/24 22:50 71 17 94 L 07/17/24 22:41 75 13 97 07/17/24 22:00 72 18 123/70 95 07/17/24 21:42 100 07/17/24 21:39 72 19 136/72 96 07/17/24 21:12 97.2 F 72 18 137/70 96 Wound Assessment: Skin/Wound Assessment Wound/Incision Assessment Start: 07/18/24 01:25 Text: Status: Active Freq: Q6H Protocol: Document 07/18/24 01:25 MM (Rec: 07/18/24 01:30 MM [id number]) Wound/Incision Assessment Left Parietal Wound Assessment Admission Wound Type Laceration Drainage Amount None Drainage Odor None/Absent General Appearance Well Approximated,[place] Intact,Open to air Comment 6 tatyana to left lateral/ parietal scalp. no drainge present. Wound Photo Photo Taken No Results - Labs Lab/Micro Results: Lab Results-Last 24 Hours 07/17/24 07/17/24 07/17/24 Range/Units 21:30 21:30 21:30 WBC 19.3 H (3.98-10.04) x10^3/uL RBC 4.31 (3.93-5.22) x10^6/uL Hgb 13.4 (11.2-15.7) g/dL Hct 38.9 (34.1-44.9) % MCV 90.3 (79.4-94.8) fL MCH 31.1 (25.6-32.2) pg MCHC 34.4 (32.2-35.5) g/dL RDW 12.4 (11.7-14.4) % Plt Count 338 (182-369) x10^3/uL MPV 8.8 L (9.4-12.3) fL Gran % 86.5 H (34.0-71.1) % Immature Gran % (Auto) 0.5 H (0.001-0.429) % Nucleat RBC Rel Count 0.0 (0.00-0.2) % Eos # (Auto) 0.08 (0.04-0.36) x10^3/uL Immature Gran # (Auto) 0.10 H (0.001-0.031) x10^3u/L Absolute Lymphs (auto) 1.37 (1.18-3.74) x10^3/uL Absolute Monos (auto) 1.01 H (0.24-0.86) x10^3/uL Absolute Nucleated RBC 0.00 (0.00-0.012) x10^3u/L Lymphocytes % 7.1 L (19.3-51.7) % Monocytes % 5.2 (4.7-12.5) % Eosinophils % 0.4 L (0.7-5.8) % Basophils % 0.3 (0.1-1.2) % Absolute Granulocytes 16.72 H (1.56-6.13) x10^3/uL Basophils # 0.05 (0.01-0.08) x10^3/uL Sodium 130 L (135-145) mmol/L Potassium 4.2 (3.5-5.1) mmol/L Chloride 101 (98-107) mmol/L Carbon Dioxide 19 L (22-30) mmol/L Anion Gap 13.9 (5-15) MEQ/L BUN 15 (7-17) mg/dL Creatinine 1.15 H (0.52-1.04) mg/dL Estimated GFR 52.2 ML/MIN Glucose 126 H (74-106) mg/dL Calcium 9.0 (8.4-10.2) mg/dL Total Bilirubin 0.50 (0.2-1.3) mg/dL AST 32 (14-36) U/L ALT 28 (0-35) U/L Alkaline Phosphatase 117 (38-126) U/L Troponin I < 0.012 (0.000-0.033) ng/mL Serum Total Protein 6.9 (6.3-8.2) g/dL Albumin 3.9 (3.5-5.0) g/dL Urine Color (Yellow) Urine Appearance (Clear) Urine pH (4.6-8.0) Ur Specific [place] (1.005-1.030) Urine Protein (Negative) Urine Glucose (UA) (Negative) mg/dL Urine Ketones (Negative) Urine Blood (Negative) Urine Nitrite (Negative) Urine Bilirubin (Negative) Urine Urobilinogen (0.2) mg/dL Ur Leukocyte Esterase (Negative) U Hyaline Cast (Auto) (0-2) /LPF Urine Microscopic RBC (0-5) /HPF Urine Microscopic WBC (0-5) /HPF Ur Epithelial Cells (None Seen) /HPF Urine Bacteria (None Seen) /HPF Urine Culture Reflexed (NO) 07/18/24 07/18/24 07/18/24 Range/Units 00:03 00:20 05:21 WBC (3.98-10.04) x10^3/uL RBC (3.93-5.22) x10^6/uL Hgb (11.2-15.7) g/dL Hct (34.1-44.9) % MCV (79.4-94.8) fL MCH (25.6-32.2) pg MCHC (32.2-35.5) g/dL RDW (11.7-14.4) % Plt Count (182-369) x10^3/uL MPV (9.4-12.3) fL Gran % (34.0-71.1) % Immature Gran % (Auto) (0.001-0.429) % Nucleat RBC Rel Count (0.00-0.2) % Eos # (Auto) (0.04-0.36) x10^3/uL Immature Gran # (Auto) (0.001-0.031) x10^3u/L Absolute Lymphs (auto) (1.18-3.74) x10^3/uL Absolute Monos (auto) (0.24-0.86) x10^3/uL Absolute Nucleated RBC (0.00-0.012) x10^3u/L Lymphocytes % (19.3-51.7) % Monocytes % (4.7-12.5) % Eosinophils % (0.7-5.8) % Basophils % (0.1-1.2) % Absolute Granulocytes (1.56-6.13) x10^3/uL Basophils # (0.01-0.08) x10^3/uL Sodium (135-145) mmol/L Potassium (3.5-5.1) mmol/L Chloride (98-107) mmol/L Carbon Dioxide (22-30) mmol/L Anion Gap (5-15) MEQ/L BUN (7-17) mg/dL Creatinine (0.52-1.04) mg/dL Estimated GFR ML/MIN Glucose (74-106) mg/dL Calcium (8.4-10.2) mg/dL Total Bilirubin (0.2-1.3) mg/dL AST (14-36) U/L ALT (0-35) U/L Alkaline Phosphatase (38-126) U/L Troponin I < 0.012 < 0.012 (0.000-0.033) ng/mL Serum Total Protein (6.3-8.2) g/dL Albumin (3.5-5.0) g/dL Urine Color Dark Yellow A (Yellow) Urine Appearance Cloudy A (Clear) Urine pH 6.5 (4.6-8.0) Ur Specific [place] 1.020 (1.005-1.030) Urine Protein 30 (Negative) Urine Glucose (UA) Negative (Negative) mg/dL Urine Ketones Trace A (Negative) Urine Blood Negative (Negative) Urine Nitrite Positive A (Negative) Urine Bilirubin Negative (Negative) Urine Urobilinogen 1.0 A (0.2) mg/dL Ur Leukocyte Esterase Large A (Negative) U Hyaline Cast (Auto) 11-20 (0-2) /LPF Urine Microscopic RBC 0-2 (0-5) /HPF Urine Microscopic WBC >100 A (0-5) /HPF Ur Epithelial Cells None Seen (None Seen) /HPF Urine Bacteria Many A (None Seen) /HPF Urine Culture Reflexed YES (NO) 07/18/24 07/18/24 Range/Units 05:21 05:21 WBC 13.6 H (3.98-10.04) x10^3/uL RBC 4.02 (3.93-5.22) x10^6/uL Hgb 12.3 (11.2-15.7) g/dL Hct 36.2 (34.1-44.9) % MCV 90.0 (79.4-94.8) fL MCH 30.6 (25.6-32.2) pg MCHC 34.0 (32.2-35.5) g/dL RDW 12.4 (11.7-14.4) % Plt Count 300 (182-369) x10^3/uL MPV 8.9 L (9.4-12.3) fL Gran % 78.1 H (34.0-71.1) % Immature Gran % (Auto) 0.4 (0.001-0.429) % Nucleat RBC Rel Count 0.0 (0.00-0.2) % Eos # (Auto) 0.11 (0.04-0.36) x10^3/uL Immature Gran # (Auto) 0.05 H (0.001-0.031) x10^3u/L Absolute Lymphs (auto) 1.98 (1.18-3.74) x10^3/uL Absolute Monos (auto) 0.80 (0.24-0.86) x10^3/uL Absolute Nucleated RBC 0.00 (0.00-0.012) x10^3u/L Lymphocytes % 14.6 L (19.3-51.7) % Monocytes % 5.9 (4.7-12.5) % Eosinophils % 0.8 (0.7-5.8) % Basophils % 0.2 (0.1-1.2) % Absolute Granulocytes 10.60 H (1.56-6.13) x10^3/uL Basophils # 0.03 (0.01-0.08) x10^3/uL Sodium 133 L (135-145) mmol/L Potassium 3.5 (3.5-5.1) mmol/L Chloride 107 (98-107) mmol/L Carbon Dioxide 17 L (22-30) mmol/L Anion Gap 12.2 (5-15) MEQ/L BUN 14 (7-17) mg/dL Creatinine 0.83 (0.52-1.04) mg/dL Estimated GFR 77.2 ML/MIN Glucose 105 (74-106) mg/dL Calcium 8.0 L (8.4-10.2) mg/dL Total Bilirubin (0.2-1.3) mg/dL AST (14-36) U/L ALT (0-35) U/L Alkaline Phosphatase (38-126) U/L Troponin I (0.000-0.033) ng/mL Serum Total Protein (6.3-8.2) g/dL Albumin (3.5-5.0) g/dL Urine Color (Yellow) Urine Appearance (Clear) Urine pH (4.6-8.0) Ur Specific [place] (1.005-1.030) Urine Protein (Negative) Urine Glucose (UA) (Negative) mg/dL Urine Ketones (Negative) Urine Blood (Negative) Urine Nitrite (Negative) Urine Bilirubin (Negative) Urine Urobilinogen (0.2) mg/dL Ur Leukocyte Esterase (Negative) U Hyaline Cast (Auto) (0-2) /LPF Urine Microscopic RBC (0-5) /HPF Urine Microscopic WBC (0-5) /HPF Ur Epithelial Cells (None Seen) /HPF Urine Bacteria (None Seen) /HPF Urine Culture Reflexed (NO) - Radiology Impressions Radiology Exams & Impressions: Radiology Procedures Category Date Time Status HEAD WITHOUT CONTRAST [CT] Stat Exams 07/17/24 21:49 Completed MRI BRAIN W/O CONTRAST [MRI] Routine Exams 07/18/24 09:41 Ordered MRI BRAIN W/O CONTRAST [MRI] Routine Exams 07/18/24 09:43 Ordered - Other Procedures and Tests Respiratory Therapy 07/18/24 09:47 EEG 41-60 Minutes (Normal) ONCE
[2024-07-18] MEDS ORDERED: ENOXAPARIN SODIUM SQ SCH (10:00)
[2024-07-18] MEDS ORDERED: VENLAFAXINE HCL 75 MG PO SCH (10:00)
[2024-07-18] MEDS ORDERED: NON-FORMULARY ITEM (Levocetirizine Dihydrochloride [Levocetirizine Dihydrochloride] 5 MG T PO SCH (10:00)
[2024-07-18] MEDS ORDERED: NON-FORMULARY ITEM (Topiramate 100 Mg*** [Topamax 100 Mg***] 100 MG Tablet) PO SCH ×2 (10:00→22:00)
--- NOTE | 2024-07-18 14:45 | XRAY ---
Indication: Syncope. Head injury following fall. Nonacute CT head exam. Sagittal, coronal, and axial MRI brain performed using T1, T2, FLAIR, diffusion, and ADC sequences. Comparison: None Tiny ferromagnetic artifact left posterior scalp presumed iatrogenic. Ventriculosulcal pattern appears symmetric with age-appropriate global atrophy. No acute intracranial hemorrhage, abnormal extra-axial fluid collection, or mass effect. Diffusion images are negative for restricted signal. Fourth ventricle is midline without hydrocephalus. 7/8 cranial nerve complex bilaterally symmetric. Normal flow void signal within the major intracerebral circulation per normal-appearing craniocervical junction and sella turcica. Mild mucosal thickening inferior maxillary sinuses bilaterally. Right maxillary sinus also demonstrates 1.3 cm polyp/retention cyst. Impression: Paranasal sinus disease and right maxilla sinus polyp/retention cyst. Remaining MRI brain without contrast exam is negative.
[2024-07-18] MEDS: ZOCOR 20MG PO SCH (19:59)
[2024-07-18] MEDS: ROCEPHIN 1 GM / 100 ML NaCl 1 GM/100 ML IVPB IV SCH (20:00)
[2024-07-18] MEDS ORDERED: NON-FORMULARY ITEM (Simvastatin 40 Mg [Zocor 40 Mg] 40 MG Tablet) PO SCH (22:00)
[2024-07-19 00:07] VITALS: RESP 16
[2024-07-19 05:42] LABS: Hematocrit 36.6 % (34.1-44.9); Hemoglobin 12.4 g/dL (11.2-15.7); Mean Corpuscular Hemoglobin 30.8 pg (25.6-32.2); Mean Corpuscular Hgb Concent. 33.9 g/dL (32.2-35.5); Mean Platelet Volume 9.1 fL (9.4-12.3); Platelet Count 315 x10^3/uL (182-369); Red Blood Count 4.02 x10^6/uL (3.93-5.22); Red Cell Distribution Width 12.6 % (11.7-14.4); White Blood Count 9.1 x10^3/uL (3.98-10.04)
[2024-07-19 06:00] LABS: ALBUMIN 3.9 g/dL (3.5-5.0); ANION GAP 12.5 MEQ/L (5-15); BILIRUBIN,TOTAL 0.4 mg/dL (0.2-1.3); Calcium 8.8 mg/dL (8.4-10.2); Creatinine 1 0.74 mg/dL (0.52-1.04); EST GLOMERULAR FILTRATION RATE 88.6 ML/MIN; Potassium 3.7 mmol/L (3.5-5.1); Total Protein 6.9 g/dL (6.3-8.2)
[2024-07-19 07:37] VITALS: TEMP 97.7; O2SAT 96
--- NOTE | 2024-07-19 09:56 | PCM.NOTE ---
Date and Time: 07/19/24 0951 Subjective Assessment: [facility] Follow-up Consultation Physician Signature This document was electronically signed by: Floyd Carroll MD Consult Cover Page FROM: [employer], Call Back Number: [phone] SUBJECT: Consult Recommendations Date and Time of Report: 07/19/2024 09:52 AM ET Items Contained in this Document: Neurology Consult Note Consult Information Member Facility: [facility] Facility Consult ID: [id number] Facility Time Zone: ET Date and Time of Request: 07-19-2024 08:00 AM ET Requesting Clinician: PAULINA SMITH NP Patient Name: SHERIE BARRAZA Date of : 1955 Gender: Female Patient identity was confirmed at the beginning of the consult with the patient/family/staff using two personal identifiers: Patient name and Reason for Consult Reason for Consult: Inpatient General Chief Complaint: Syncope, history of seizure Patient Location and Admission Status: Inpatient Family Members and Medical Staff Present During Exam: No family or staff present History of Present Illness: 69 year old hypertensive woman with a history of hyperlipidemia, anxiety/depression, migraine, and a seizure, who was hospitalized on 07/18/24 after an episode of loss of consciousness. She reports that she had been feeling lightheaded prior to the episode. She was in her kitchen preparing something to eat when she lost consciousness and struck her head causing a scalp laceration. She does not know how long she was unconsciousness, but believes that it was only seconds - minutes. Upon arrival in the ER she was awake and oriented without neurological deficits. She states that she a single tonic/clonic seizure in 1988 and was prescribed Phenytoin. This was later replaced with Eslicarbazepine - though she has never had a second seizure. She also takes Topiramate for her migraine headaches. An initial CT scan revealed a left scalp laceration with scalp hematoma and foci of air, but no acute intracranial abnormalities. Hypodensity was noted in the right basal ganglia and anterior internal capsule. A follow-up MRI confirmed that this is a chronic finding. She is also prescribved Ceftriaxone for a UTI identified on admission. Number of Documented HPI Elements: 1-3 Medical History Medical History: Anxiety, Depression, Epilepsy, Hyperlipidemia, Hypertension, Migraine Past Procedures: None Pertinent Family History: Unknown Allergies Allergies: Sulfa Other Allergies: Hydrocodone, Escitalopram Medications Anti-Coagulants: None Anti-Platelets: None Other Medications: Metoprolol, Topiramate, Simvastatin, Levocetirizine, Amlodipine, Eslicarbazepine, Venlafaxine, Ceftriaxone Social History Alcohol Use: None Drug Use: None Tobacco Use: None Vital Signs Temperature F: 97.7 Temperature C: 36.5 Blood Pressure (mmHg): 137/75 Heart Rate (bpm): 63 Respiration Rate (/min): 16 O2 Sat (%): 96 POC Glucose(mg/dL): 95 Oxygen Delivery Method: Room Air EKG Rhythm: Sinus Rhythm Weight in lbs: 170.6 Weight in KGs: 77.4 Means of collecting weight: Patient weighed at hospital Date and Time: 07/19/2024 09:36:22 AM ET POC Glucose(mg/dL): 95 Review Of Systems General, Constitutional: Pertinent Positives/Negatives General, Constitutional Comments: Reprots feeling lightheaded for several days prior to admission. Neurological: Pertinent Positives/Negatives Neurological comments: Taking Eslicarbazepine - though she has only had a single seizure 35 years ago. History of Migraine on Topiramate. Psychiatric: Pertinent Positives/Negatives Psychiatric Comments: Anxiety, depression Cardiovascular: Pertinent Positives/Negatives Cardiovascular Comments: No chest pain or palpitations Genitourinary: Pertinent Positives/Negatives Genitourinary comments: Taking Ceftriaxone for UTI NIH Stroke Scale NIH Stroke Scale Score: 0 1. Level of Consciousness: 0 : alert; keenly responsive. 1a. LOC Questions: 0 : Answers both questions correctly. 1b. LOC Commands: 0 : Performs both tasks correctly. 2. Best Gaze: 0 : Normal. 3. Visual: 0 : No visual loss. 4. Facial Palsy: 0 : Normal symmetrical movements. 5a. Motor Left Arm: 0 : No drift; limb holds 90 (or 45) degrees for full 10 seconds. 5b. Motor Right Arm : 0 : No drift; limb holds 90 (or 45) degrees for full 10 seconds. 6a. Motor Left Le : No drift; leg holds 30-degree position for full 5 seconds. 6b. Motor Right Le : No drift; leg holds 30-degree position for full 5 seconds. 7. Limb Ataxia: 0 : Absent. 8. Sensory: 0 : Normal; no sensory loss. 9. Best Language: 0 : No aphasia; normal. 10. Dysarthria: 0 : Normal. 11. Extinction and inattention (formerly Neglect) : 0 : No abnormality. NIHSS Entry Time: 07/19/2024 09:37:15 AM ET Exam NEUROLOGICAL EXAMINATION MENTAL STATUS: She was awake, alert, and fully oriented. Speech was clear. Language was fluent. CRANIAL NERVES: Visual richards were full. Extraocular movements were full and conjugate. There was no ptosis. Facial sensation was intact to light touch. There was no facial asymmetry. MOTOR: There was no pronator drift. Fine motor function was intact in both hands. There was no fixed arm roll. She was able to elevate each leg off the bed for 5 seconds. SENSORY: Sensation was intact to light touch throughout COORDINATION: There was no nystagmus or dysmetria Clinician assisting with exam: No staff present Labs and Imaging Labs available?: Yes Blood Glucose (mg/dL): 95 WBC (mcL): 9.1 HGB (g/dL): 12.4 HCT (%): 36.2 PLT (mcL): 315 Na (mEq/L): 136 K (mEq/L): 3.7 BUN (mg/dL): 14 Cr (mg/dL): 0.74 Other Labs: UA: >100 WBCs, + bacteria CT: Cortical atrophy, hypodensity in the right anterior internal capsule, right basal ganglia, left parietal scalp laceration with extracranial hematoma and air MRI: No areas of restricted diffusion, abnormal signal in the right basal ganglia on FLAIR sequences indicative of chronic ischemia Assessment and Recommendations Assessment: 69 year old hypertensive woman with a history of hyperlipidemia, anxiety/depression, migraine, and a seizure, who was hospitalized on 07/18/24 after an episode of loss of consciousness. The semiology of the episode is suggestive of syncope. Since she has only had a single seizure 35 years ago, the semiology of her seizure is unknown. It is unclear why anticonvulsants are indicated when she has only had a single seizure. This question should be discussed at an outpatient Neurology consultation. Her MRI confirms that no acute cerebral pathology is present. Recommendations: 1. Complete antibiotic treartment for UTI 2. Outpatient Holter and echocardiogram (if not obtained as an inpatient) 3. Outpatient Cardiology follow-up 4. Outpatient Neurology follow-up to discuss the possible cessation of Eslic arbazepine Disposition: Neurologically clear for discharge to OP follow up Diagnosis Impression: Syncope Migraine Case discussed with: Paulina Smith [employer] Inclusion Criteria Time Last Known Well: Greater than 24 hours Neurological deficit considered to be disabling within 4.5 h of ischemic stroke symptom onset or patient last known well: No BP < 185/110: Yes Glucose > 50 mg/dL: Yes Exclusion Criteria Acute head trauma or recent severe head trauma within the previous 3 months: No Symptoms suggesting subarachnoid hemorrhage: No Elevated blood pressure despite IV medications (>185/>110 mm Hg): No Known coagulopathy - platelets <100,000/mm3, INR >1.7, aPTT >40s, PT >15s (do not wait for labs unless known thrombocytopenia or anticoagulation): No Thrombin inhibitors or factor Xa inhibitors - unless aPTT, INR, platelet count, ECT, TT, or appropriate direct factor Xa activity assays are normal or the patient has not received a dose for >48 hours (with normal renal function): No LMWH on anticoagulant (full treatment) dosing within < 24 hours: No Concomitant administration of IV Abciximab, or IV aspirin within 90 minutes after the start of IV alteplase initiation: No Extensive regions of marked clear and obvious hypodensity representing early ischemic changes irreversible injury: No Acute intracranial hemorrhage: No History of intracranial hemorrhage: No Symptoms consistent with infective endocarditis: No Known or suspected aortic arch dissection: No GI malignancy or recent GI bleed within 21 days: No Mild nondisabling stroke (NIHSS 0-5): No Prior ischemic stroke within previous 3 months: No Intracranial/intraspinal surgery within 3 months: No Intra-axial intracranial neoplasm: No Relative Exclusion Criteria One or more of the above relative contraindications render IV Thrombolysis inadvisable in my judgment.: No Thrombolysis Recommendation Thrombolysis recommended?: No Reason Thrombolysis not recommended Comments: No clinical signs of acute stroke ICD-10 Code ICD-10 Code (Primary): R55 : Syncope and collapse ICD-10 Code: I95.1 : Orthostatic hypotension ICD-10 Code: R56.9 : Unspecified convulsions Attestation Interaction Mode: Video & Phone Time of Phone Call : 07-19-2024 09:09 AM ET Time of Video Call : 07-19-2024 08:57 AM ET Interaction Attestation: Clinical telemedicine services delivered using HIPAA- compliant interactive video-audio telecommunications while the patient and the rendering provider were not in the same physical location. Written report was provided to the requesting provider. Evaluation Duration (mins): 45 Burns Timer Summary ED Arrival Date and Time: 07-17-2024 09:12 PM ET Date and Time of Request: 07-19-2024 08:00 AM ET Physician Signature This document was electronically signed by: Floyd Carroll MD Objective Exam - Vital Signs Vital Signs: Vital Signs - 24 hr 07/18/24 07/18/24 07/18/24 12:00 16:00 20:00 Temperature 97.2 F 97 F 97.5 F Pulse Rate 56 L 64 70 Respiratory 19 16 18 Rate Blood Pressure 119/61 124/65 142/68 [Left Arm] O2 Sat by Pulse 96 97 97 Oximetry 07/19/24 07/19/24 07/19/24 00:00 04:00 07:36 Temperature 97.0 F 97.9 F 97.7 F Pulse Rate 66 65 63 Respiratory 16 16 16 Rate Blood Pressure 132/65 116/57 137/75 [Left Arm] O2 Sat by Pulse 96 95 96 Oximetry Objective Data - Labs Lab/Micro Results: Lab Results-Last 24 Hours 07/19/24 07/19/24 Range/Units 05:21 05:21 WBC 9.1 (3.98-10.04) x10^3/uL RBC 4.02 (3.93-5.22) x10^6/uL Hgb 12.4 (11.2-15.7) g/dL Hct 36.6 (34.1-44.9) % MCV 91.0 (79.4-94.8) fL MCH 30.8 (25.6-32.2) pg MCHC 33.9 (32.2-35.5) g/dL RDW 12.6 (11.7-14.4) % Plt Count 315 (182-369) x10^3/uL MPV 9.1 L (9.4-12.3) fL Sodium 136 (135-145) mmol/L Potassium 3.7 (3.5-5.1) mmol/L Chloride 110 H (98-107) mmol/L Carbon Dioxide 17 L (22-30) mmol/L Anion Gap 12.5 (5-15) MEQ/L BUN 14 (7-17) mg/dL Creatinine 0.74 (0.52-1.04) mg/dL Estimated GFR 88.6 ML/MIN Glucose 95 (74-106) mg/dL Calcium 8.8 (8.4-10.2) mg/dL Total Bilirubin 0.40 (0.2-1.3) mg/dL AST 35 (14-36) U/L ALT 29 (0-35) U/L Alkaline Phosphatase 96 (38-126) U/L Serum Total Protein 6.9 (6.3-8.2) g/dL Albumin 3.9 (3.5-5.0) g/dL Microbiology 07/18/24 00:03 Urine Culture - Preliminary Urine, Catheterized GRAM NEGATIVE ID AND SENSITIVITY PENDING 07/18/24 00:35 Blood Culture - Preliminary Blood 07/18/24 00:20 Blood Culture - Preliminary Blood - Radiology Orders Radiology Orders: Radiology Procedures Category Date Time Status HEAD WITHOUT CONTRAST [CT] Stat Exams 07/17/24 21:49 Completed MRI BRAIN W/O CONTRAST [MRI] Routine Exams 07/18/24 09:43 Completed Assessment & Plan - Encounter Encounter: "The entirety of this encounter was performed via Telemedicine using audio and visual "
[2024-07-19 12:02] VITALS: BP 130/63; PULSE 57
--- NOTE | 2024-07-19 14:08 | PCM.DS ---
Discharge Summary Date of Admission: 07/18/24 00:55 Date of Discharge: 07/19/24 Admitting Physician: ARIELLA FALLON MD Consults: Consults on Case 07/18/24 08:27 Consult Neurology ROUTINE Primary Care Provider: ANEGLIKA ORELLANA MD Allergies Allergies hydrocodone bitartrate [From Lotus] Allergy (Mild, Verified 07/18/24 01:08) Rash Sulfa (Sulfonamide Antibiotics) [Sulfa(Sulfonamide Antibiotics)] Allergy (Mild, Verified 07/18/24 01:08) patient unsure as to reaction escitalopram oxalate [From Lexapro] Allergy (Unknown, Verified 07/18/24 01:08) Hospital Summary - Hospital Course Hospital Course: is a 69 year old female who presented to the emergency department on 07/18/24 for evaluation after syncope and collapse. Patient was at home and had been feeling dizzy all afternoon. She was in her kitchen and began to feel dizzy and apparently passed out. Patient was found on the floor by her daughter. Patient has a 3 cm laceration to posterior scalp and temitope placed in ER. Patient complained of a headache on admission now resolved. She denied neck pain. She also denies chest pain and shortness of breath. In the ED, the patient was noted to have evidence of UTI and was given IV antibiotics. She was evaluated by teleneurology. Discussed pt case with neurology today and he feels pt is stable to d/c. OP appointment made with neurology for f/u. Pt to also f/u with PCP for staple removal and to have labs rechecked. Bicarb 17 and eduardo ld/c with PO bicarb for 5 days. Pt is adamant about going home today. She states we do not carry her GERD meds here and she needs them. She walked well with PT w/o concern. Will d/c with PO antibiotics for UTI. Will follow culture OP. She denies any further concerns at this time. - Vitals & Intake/Output Vital Signs: Vital Signs Temperature 97.7 F 07/19/24 12:00 Pulse Rate 57 L 07/19/24 12:00 Respiratory Rate 16 07/19/24 12:00 Blood Pressure 130/63 07/19/24 12:00 O2 Sat by Pulse Oximetry 96 07/19/24 12:00 Intake & Output: Intake & Output 07/17/24 07/18/24 07/19/24 07/20/24 11:59 11:59 11:59 11:59 Intake Total 1259 1523 480 Balance 1259 1523 480 Weight 77.4 kg - Lab Result Diagrams: 07/19/24 05:21 07/19/24 05:21 Lab Results-Last 24 Hrs: Lab Results-Last 24 Hours 07/19/24 07/19/24 Range/Units 05:21 05:21 WBC 9.1 (3.98-10.04) x10^3/uL RBC 4.02 (3.93-5.22) x10^6/uL Hgb 12.4 (11.2-15.7) g/dL Hct 36.6 (34.1-44.9) % MCV 91.0 (79.4-94.8) fL MCH 30.8 (25.6-32.2) pg MCHC 33.9 (32.2-35.5) g/dL RDW 12.6 (11.7-14.4) % Plt Count 315 (182-369) x10^3/uL MPV 9.1 L (9.4-12.3) fL Sodium 136 (135-145) mmol/L Potassium 3.7 (3.5-5.1) mmol/L Chloride 110 H (98-107) mmol/L Carbon Dioxide 17 L (22-30) mmol/L Anion Gap 12.5 (5-15) MEQ/L BUN 14 (7-17) mg/dL Creatinine 0.74 (0.52-1.04) mg/dL Estimated GFR 88.6 ML/MIN Glucose 95 (74-106) mg/dL Calcium 8.8 (8.4-10.2) mg/dL Total Bilirubin 0.40 (0.2-1.3) mg/dL AST 35 (14-36) U/L ALT 29 (0-35) U/L Alkaline Phosphatase 96 (38-126) U/L Serum Total Protein 6.9 (6.3-8.2) g/dL Albumin 3.9 (3.5-5.0) g/dL Micro Results-Entire Visit: Microbiology 07/18/24 00:35 Blood Culture - Preliminary Blood 07/18/24 00:20 Blood Culture - Preliminary Blood 07/18/24 00:03 Urine Culture - Preliminary Urine, Catheterized GRAM NEGATIVE ID AND SENSITIVITY PENDING - Radiology Exams Ordered Rad Exams-Entire Visit: Radiology Procedures Category Date Time Status HEAD WITHOUT CONTRAST [CT] Stat Exams 07/17/24 21:49 Completed MRI BRAIN W/O CONTRAST [MRI] Routine Exams 07/18/24 09:43 Completed - Procedures and Test Procedures and Tests throughout Hospitalization: Therapy Orders & Screens 07/18/24 02:54 PT Eval & Treat (MD Order) ONCE Reason for Eval:: dizziness, fall Diagnosis: syncope&collapse, scalp laceration, orthostatic hypotension, leukocytosis OT Eval and Treat (MD Order) ONCE Comment: Physician Instructions: Reason For Exam: Diagnosis: syncope&collapse, scalp laceration, orthostatic hypotension, leukocytosis 07/18/24 09:47 EEG 41-60 Minutes (Normal) ONCE Comment: Reason For Exam: Diagnosis: syncope&collapse, scalp laceration, orthostatic hypotension, leukocytosis Discharge Exam General Appearance: no apparent distress, alert Neurologic Exam: alert, oriented x 3, cooperative, normal mood/affect, nml cerebellar function, sensation nml, No motor deficits Eye Exam: PERRL, EOMI, eyes nml inspection Ears, Nose, Throat Exam: normal ENT inspection, pharynx normal, moist mucous membranes Neck Exam: normal inspection, non-tender, supple, full range of motion Respiratory Exam: normal breath sounds, lungs clear, No respiratory distress Cardiovascular Exam: regular rate/rhythm, normal heart sounds Gastrointestinal/Abdomen Exam: soft, No tenderness, No mass Pelvic Exam: deferred Rectal Exam: deferred Back Exam: normal inspection, normal range of motion, No CVA tenderness, No vertebral tenderness Extremity Exam: normal inspection, normal range of motion Skin Exam: normal color, warm, dry Wound Assessment: Skin/Wound Assessment Wound/Incision Assessment Start: 07/18/24 01:25 Text: Status: Active Freq: Q6H Protocol: Document 07/19/24 08:00 AR (Rec: 07/19/24 08:34 AR [id number]) Wound/Incision Assessment Left Parietal Wound Assessment Shift Assessment Wound Type Laceration Drainage Amount None General Appearance Well Approximated,Temitope Intact Comment 6 temitope to left lateral/ parietal scalp. Wound Photo Photo Taken No Final Diagnosis/Problem List - Final Discharge Diagnosis/Problem (1) Syncope and collapse Current Visit: Yes Status: Acute Assessment & Plan: - CT head: IMPRESSION: 1. Extracalvarial soft tissue swelling and hematoma with few air foci in left posterior parietal region. New interval finding, secondary to trauma. 2. No calvarial fractures or acute intracranial hemorrhage 3. The hypodense area in the right basal ganglia and the anterior aspect of the internal capsule appear stable since prior examination and likely represent old ischemic changes. 4. Minimal chronic microvascular ischemic changes, interval stable - MRI brain: Impression: Paranasal sinus disease and right maxilla sinus polyp/retention cyst. Remaining MRI brain without contrast exam is negative. - Neurology consult- notes reviewed and discussed pt case with neurology today - Per neurology ok to d/c and f/u with neurology and cardiology OP F/U. - tree warden Donnie making appointments. - Will need OP Holter- will set up today - Echo ordered stat as pt wants to d/c. - Pt did well with PT today w/o concerns Code(s): R55 - SYNCOPE AND COLLAPSE (2) Scalp laceration Current Visit: Yes Status: Acute Assessment & Plan: - 2:2 fall - Temitope in place remove by PCP in 10 days (3) Metabolic acidosis Current Visit: Yes Status: Acute Assessment & Plan: - CO2 17 - Continue PO bicarb OP x5 days - Will need repeat labs OP next Wednesday Code(s): E87.20 - ACIDOSIS, UNSPECIFIED (4) GERD (gastroesophageal reflux disease) Current Visit: Yes Status: Chronic Assessment & Plan: - We not carry pt's home meds and she states what we have does not work for her. Code(s): K21.9 - GASTRO-ESOPHAGEAL REFLUX DISEASE WITHOUT ESOPHAGITIS (5) Leukocytosis Current Visit: Yes Status: Resolved Assessment & Plan: - resolved Code(s): D72.829 - ELEVATED WHITE BLOOD CELL COUNT, UNSPECIFIED (6) Orthostatic hypotension Current Visit: Yes Status: Resolved Assessment & Plan: - reoslved - PT eval Code(s): I95.1 - ORTHOSTATIC HYPOTENSION (7) UTI (urinary tract infection) Current Visit: Yes Status: Acute Assessment & Plan: - IV antibiotic - UC gram negative- will follow culture OP - continue OP antibiotics Code(s): N39.0 - URINARY TRACT INFECTION, SITE NOT SPECIFIED - Discharge Discharge Date: 07/19/24 Disposition: Home, Self-Care Condition: Stable Prescriptions: New Sodium Bicarbonate 650 mg PO BID 5 Days #10 tablet Continue Amlodipine Besylate 5 mg [Norvasc 5 mg] 5 mg PO DAILY Metoprolol Tartrate 25 mg [Lopressor 25MG Tab] 25 mg PO BID Simvastatin 40 mg [Zocor 40 mg] 40 mg PO HS Levocetirizine Dihydrochloride 5 mg PO DAILY Eslicarbazepine Acetate [Aptiom] 800 mg PO DAILY Topiramate 100 mg [Topamax 100 MG] 100 mg PO DAILY Topiramate 100 mg [Topamax 100 MG] 200 mg PO HS Venlafaxine HCl ER 75 mg [Effexor XR 75 MG] 150 mg PO DAILY Instructions: Stitches and temitope, Laceration Repair With [facility] Additional Instructions: I CALLED THE [facility] AND FAXED PATIENTS CHART TO [phone] FOR REVIEW BY THE PHYCSICIANS. THE OFFICE WILL GIVE PATIENT A CALL WITH A DATE/TIME TO BE SEEN AFTER CHART REVIEW. Merlin see Dr. Orellana Wednesday for repeat labs and to recheck sodium bicarb level. Have temitope removed in [address] Orellana. Follow up with: ANGELIKA ORELLANA MD [Primary Care Provider] - 07/31/24 1:00 pm
== END 2024-07-19 15:35 | disposition home or self-care (01) ==
LOC: ED 21:05 → MED SURG 07-18 00:55
PROVIDERS: ADMIT Internal Medicine; ATTEND Internal Medicine
DX: R55 Syncope and collapse (principal); S01.01XA Laceration without foreign body of scalp, initial encounter; E87.20 Acidosis, unspecified; K21.9 Gastro-esophageal reflux disease without esophagitis; D72.829 Elevated white blood cell count, unspecified; N39.0 Urinary tract infection, site not specified; E87.1 Hypo-osmolality and hyponatremia; I10 Essential (primary) hypertension; Z79.899 Other long term (current) drug therapy
CPT/HCPCS: 12002; 36415; 70450; 70551; 80048; 80053; 81001; 84484; 85025; 85027; 87040; 87086; 93005; 93041; 93242; 93306; 94760; 95812; 96374; 97161; 97165; 99285; P9612; Q3014; 87077; 87186; 93268; 96375; J0696; A9270-GY; G0378